=== PATIENT | female | born 1950 | race Caucasian/White ===

== ENCOUNTER → 2020-11-02 14:18 | Outpatient (CLI) | payer MEDICARE, SELFPAY ==
[2020-11-02 14:33] LABS: Basophils # 0.1 K/mm3 (0-0.2); Basophils % 1.2 % (0.1-2.0); Eosinophils % 0.1 % (0.1-12.0); Hematocrit 39.8 % (37.0-47.0); Hemoglobin 13.1 g/dL (12.2-16.2); Lymphocytes # 1.2 K/mm3 (0.7-4.5); Lymphocytes % 19.5 % (10-50); Mean Corpuscular HGB Conc 32.9 g/dL (31.8-35.4); Mean Corpuscular Hemoglobin 28.9 pg (27.0-31.2); Mean Corpuscular Volume 87.8 fl (81-99); Mean Platelet Volume 8.7 fl (7.4-10.4); Monocytes # 0.3 K/mm3 (0.1-1.0); Monocytes % 5.6 % (1.7-9.3); Neutrophils # 4.5 K/mm3 (1.8-7.8); Neutrophils % 73.6 % (37.0-80.0); Platelet Count 377 K/mm3 (142-424); Red Blood Count 4.53 M/mm3 (4.20-5.40); Red Cell Distribution Width 13.7 % (11.5-17.5); White Blood Count 6.1 K/mm3 (4.8-10.8)
[2020-11-02 14:52] LABS: Chloride 106 mmol/L (98-107); Sodium 142 mmol/L (136-145)
[2020-11-02 14:53] LABS: Potassium 4.4 mmoL/L (3.5-5.1)
[2020-11-02 14:55] LABS: Alanine Aminotransferase 11 U/L (12-78); Albumin Level 4.1 g/dl (3.5-5.0); Alkaline Phosphatase 90 U/L (38-126); Anion Gap 13.4 mEq/L (5-15); Aspartate Amino Transferase 21 U/L (14-36); Bilirubin,Total 0.6 mg/dl (0.2-1.3); Blood Urea Nitrogen 6 mg/dl (7-17); Carbon Dioxide 27 mmol/L (22.0-30.0); Cholesterol 181 mg/dl (140-200); Estimated Glomerular Filt Rate 122 ml/min (>60); GFR (African American) 148 ML/MIN (>60); Globulin 2.1 g/dL (1.3-3.2); Total Protein,Serum 6.2 g/dl (6.3-8.2); Triglycerides 123 mg/dl (30-150); VLDL Cholesterol 25 mg/dL (0-40)
[2020-11-02 14:56] LABS: Calcium 9.4 mg/dl (8.4-10.2); Chol/HDL Ratio 3.2 (1-3.5); Glucose 91 mg/dl (74-100); HDL Cholesterol 57 mg/dl (40-60)
[2020-11-02 15:01] LABS: Erythrocyte Sedimentation Rate 16 mm/hr (0-30)
[2020-11-02 15:10] LABS: Direct LDL Cholesterol 104.11 mg/dL (100-129)
[2020-11-02 17:20] LABS: Free T4 (Free Thyroxine) 1.69 ng/dl (0.78-2.19)
[2020-11-02 18:59] LABS: Thyroid Stimulating Hormone 0.02 uIU/mL (0.465-4.68)
[2020-11-04 13:31] LABS: Antinuclear Antibodies, IFA Negative (.)
== END ==
PROVIDERS: Visit Provider Internal Medicine
DX: E03.9 Hypothyroidism, unspecified (principal); I87.2 Venous insufficiency (chronic) (peripheral); F41.9 Anxiety disorder, unspecified; K21.9 Gastro-esophageal reflux disease without esophagitis; E78.5 Hyperlipidemia, unspecified; L50.9 Urticaria, unspecified; N39.0 Urinary tract infection, site not specified
CPT/HCPCS: 80053; 80061; 84439; 84443; 85025; 85651; 86038; 87086; 87088; 87186

== ENCOUNTER → 2021-02-02 14:00 | Outpatient (CLI) | payer MEDICARE, SELFPAY ==
[2021-02-02 14:14] LABS: Basophils # 0.1 K/mm3 (0-0.2); Basophils % 1.4 % (0.1-2.0); Hematocrit 48.3 % (37.0-47.0); Hemoglobin 15.2 g/dL (12.2-16.2); Lymphocytes # 1.2 K/mm3 (0.7-4.5); Lymphocytes % 18.1 % (10-50); Mean Corpuscular HGB Conc 31.4 g/dL (31.8-35.4); Mean Corpuscular Hemoglobin 28.7 pg (27.0-31.2); Mean Corpuscular Volume 91.3 fl (81-99); Mean Platelet Volume 9.2 fl (7.4-10.4); Monocytes # 0.3 K/mm3 (0.1-1.0); Monocytes % 4.5 % (1.7-9.3); Neutrophils % 75.9 % (37.0-80.0); Platelet Count 470 K/mm3 (142-424); Red Cell Distribution Width 13.1 % (11.5-17.5); White Blood Count 6.6 K/mm3 (4.8-10.8)
[2021-02-02 15:15] LABS: Chloride 102 mmol/L (98-107)
[2021-02-02 15:16] LABS: Potassium 4.6 mmoL/L (3.5-5.1); Sodium 141 mmol/L (136-145)
[2021-02-02 15:18] LABS: Alanine Aminotransferase 9 U/L (12-78); Amylase 56 U/L (30-110); Aspartate Amino Transferase 23 U/L (14-36); Blood Urea Nitrogen 13 mg/dl (7-17); Carbon Dioxide 30 mmol/L (22.0-30.0); Estimated Glomerular Filt Rate 99 ml/min (>60); GFR (African American) 120 ML/MIN (>60)
[2021-02-02 15:19] LABS: Albumin Level 4.5 g/dl (3.5-5.0); Albumin/Globulin Ratio 1.8 (1.1-1.8); Alkaline Phosphatase 97 U/L (38-126); Anion Gap 13.6 mEq/L (5-15); Bilirubin,Total 0.6 mg/dl (0.2-1.3); Calcium 9.7 mg/dl (8.4-10.2); Globulin 2.5 g/dL (1.3-3.2); Glucose 88 mg/dl (74-100)
== END ==
PROVIDERS: Visit Provider Internal Medicine
DX: I87.2 Venous insufficiency (chronic) (peripheral) (principal); E78.5 Hyperlipidemia, unspecified; Z79.899 Other long term (current) drug therapy
CPT/HCPCS: 80053; 82150; 85025

== ENCOUNTER → 2021-05-03 13:39 | Outpatient (CLI) | payer MEDICARE, SELFPAY ==
[2021-05-03 14:14] LABS: Basophils # 0.1 K/mm3 (0-0.2); Basophils % 1.6 % (0.1-2.0); Hematocrit 44.4 % (37.0-47.0); Hemoglobin 14.1 g/dL (12.2-16.2); Lymphocytes # 1.1 K/mm3 (0.7-4.5); Lymphocytes % 22.3 % (10-50); Mean Corpuscular HGB Conc 31.8 g/dL (31.8-35.4); Mean Corpuscular Hemoglobin 28.7 pg (27.0-31.2); Mean Corpuscular Volume 90.2 fl (81-99); Mean Platelet Volume 8.4 fl (7.4-10.4); Monocytes # 0.3 K/mm3 (0.1-1.0); Monocytes % 5.7 % (1.7-9.3); Neutrophils # 3.4 K/mm3 (1.8-7.8); Neutrophils % 70.5 % (37.0-80.0); Platelet Count 456 K/mm3 (142-424); Red Blood Count 4.92 M/mm3 (4.20-5.40); Red Cell Distribution Width 13.4 % (11.5-17.5); White Blood Count 4.9 K/mm3 (4.8-10.8)
[2021-05-03 14:44] LABS: Alanine Aminotransferase 13 U/L (12-78); Albumin Level 4.6 g/dl (3.5-5.0); Albumin/Globulin Ratio 2.4 (1.1-1.8); Alkaline Phosphatase 78 U/L (38-126); Anion Gap 11.7 mEq/L (5-15); Aspartate Amino Transferase 27 U/L (14-36); Bilirubin,Total 0.7 mg/dl (0.2-1.3); Blood Urea Nitrogen 10 mg/dl (7-17); Calcium 9.7 mg/dl (8.4-10.2); Carbon Dioxide 33 mmol/L (22.0-30.0); Chloride 98 mmol/L (98-107); Chol/HDL Ratio 3.2 (1-3.5); Cholesterol 221 mg/dl (140-200); Estimated Glomerular Filt Rate 99 ml/min (>60); GFR (African American) 120 ML/MIN (>60); Globulin 1.9 g/dL (1.3-3.2); Glucose 83 mg/dl (74-100); HDL Cholesterol 70 mg/dl (40-60); Potassium 4.7 mmoL/L (3.5-5.1); Sodium 138 mmol/L (136-145); Total Protein,Serum 6.5 g/dl (6.3-8.2); Triglycerides 102 mg/dl (30-150); VLDL Cholesterol 20 mg/dL (0-40)
[2021-05-03 14:55] LABS: Direct LDL Cholesterol 134.96 mg/dL (100-129)
[2021-05-03 15:15] LABS: Thyroid Stimulating Hormone 0.13 uIU/mL (0.465-4.68)
== END ==
LOC: LAB 13:40 → LAB.DROPOF 13:40
PROVIDERS: Visit Provider Internal Medicine
DX: E03.9 Hypothyroidism, unspecified (principal); I87.2 Venous insufficiency (chronic) (peripheral); E78.5 Hyperlipidemia, unspecified; L50.9 Urticaria, unspecified
CPT/HCPCS: 80053; 80061; 84443; 85025

== ENCOUNTER → 2021-10-19 12:31 | Outpatient (CLI) | payer MEDICARE, SELFPAY ==
[2021-10-19 14:57] LABS: Chloride 102 mmol/L (98-107); Potassium 4.8 mmoL/L (3.5-5.1); Sodium 138 mmol/L (136-145)
[2021-10-19 15:00] LABS: Alanine Aminotransferase 11 U/L (12-78); Albumin Level 4.4 g/dl (3.5-5.0); Albumin/Globulin Ratio 1.9 (1.1-1.8); Alkaline Phosphatase 84 U/L (38-126); Anion Gap 10.8 mEq/L (5-15); Aspartate Amino Transferase 27 U/L (14-36); Blood Urea Nitrogen 8 mg/dl (7-17); Calcium 9.8 mg/dl (8.4-10.2); Carbon Dioxide 30 mmol/L (22.0-30.0); Estimated Glomerular Filt Rate 82 ml/min (>60); GFR (African American) 100 ML/MIN (>60); Globulin 2.3 g/dL (1.3-3.2); Glucose 88 mg/dl (74-100); Total Protein,Serum 6.7 g/dl (6.3-8.2)
[2021-10-19 15:31] LABS: Thyroid Stimulating Hormone 0.61 uIU/mL (0.465-4.68)
== END ==
PROVIDERS: PCP Internal Medicine; Visit Provider Internal Medicine
DX: E03.9 Hypothyroidism, unspecified (principal); I87.2 Venous insufficiency (chronic) (peripheral); R53.83 Other fatigue
CPT/HCPCS: 80053; 84443

== ENCOUNTER → 2022-01-18 13:47 | Outpatient (CLI) | payer MEDICARE, SELFPAY ==
[2022-01-18 17:23] LABS: Basophils # 0.1 K/mm3 (0-0.2); Basophils % 2.7 % (0.1-2.0); Eosinophils % 0.1 % (0.1-12.0); Hematocrit 44.9 % (37.0-47.0); Hemoglobin 13.9 g/dL (12.2-16.2); Lymphocytes # 1.1 K/mm3 (0.7-4.5); Lymphocytes % 21.5 % (10-50); Mean Corpuscular Hemoglobin 28.7 pg (27.0-31.2); Mean Corpuscular Volume 92.5 fl (81-99); Mean Platelet Volume 9.2 fl (7.4-10.4); Monocytes # 0.3 K/mm3 (0.1-1.0); Monocytes % 6.5 % (1.7-9.3); Neutrophils # 3.4 K/mm3 (1.8-7.8); Neutrophils % 69.2 % (37.0-80.0); Platelet Count 471 K/mm3 (142-424); Red Blood Count 4.86 M/mm3 (4.20-5.40); Red Cell Distribution Width 13.4 % (11.5-17.5)
[2022-01-18 17:38] LABS: Alanine Aminotransferase 13 U/L (12-78); Albumin Level 4.4 g/dl (3.5-5.0); Albumin/Globulin Ratio 2.1 (1.1-1.8); Alkaline Phosphatase 99 U/L (38-126); Anion Gap 16.6 mEq/L (5-15); Aspartate Amino Transferase 27 U/L (14-36); Bilirubin,Total 0.8 mg/dl (0.2-1.3); Blood Urea Nitrogen 9 mg/dl (7-17); Calcium 9.3 mg/dl (8.4-10.2); Carbon Dioxide 31 mmol/L (22.0-30.0); Chloride 98 mmol/L (98-107); Estimated Glomerular Filt Rate 99 ml/min (>60); GFR (African American) 119 ML/MIN (>60); Globulin 2.1 g/dL (1.3-3.2); Glucose 70 mg/dl (74-100); Potassium 4.6 mmoL/L (3.5-5.1); Sodium 141 mmol/L (136-145); Total Protein,Serum 6.5 g/dl (6.3-8.2)
[2022-01-18 18:05] LABS: Thyroid Stimulating Hormone 1.05 uIU/mL (0.465-4.68)
== END ==
PROVIDERS: PCP Internal Medicine; Visit Provider Internal Medicine
DX: I10 Essential (primary) hypertension (principal); E03.9 Hypothyroidism, unspecified; E78.5 Hyperlipidemia, unspecified; F41.9 Anxiety disorder, unspecified; I87.2 Venous insufficiency (chronic) (peripheral)
CPT/HCPCS: 80053; 84443; 85025

== ENCOUNTER → 2022-04-17 12:17 | Outpatient (CLI) | payer MEDICARE, SELFPAY ==
[2022-04-17 12:32] LABS: Basophils # 0.1 K/mm3 (0-0.2); Basophils % 1.8 % (0.1-2.0); Eosinophils % 0.1 % (0.1-12.0); Hematocrit 45.3 % (37.0-47.0); Hemoglobin 14.3 g/dL (12.2-16.2); Lymphocytes % 22.6 % (10-50); Mean Corpuscular HGB Conc 31.6 g/dL (31.8-35.4); Mean Corpuscular Hemoglobin 27.8 pg (27.0-31.2); Mean Corpuscular Volume 87.9 fl (81-99); Mean Platelet Volume 8.5 fl (7.4-10.4); Monocytes # 0.3 K/mm3 (0.1-1.0); Monocytes % 5.9 % (1.7-9.3); Neutrophils # 3.1 K/mm3 (1.8-7.8); Neutrophils % 69.6 % (37.0-80.0); Platelet Count 472 K/mm3 (142-424); Red Blood Count 5.16 M/mm3 (4.20-5.40); White Blood Count 4.5 K/mm3 (4.8-10.8)
[2022-04-17 13:22] LABS: Erythrocyte Sedimentation Rate 1 mm/hr (0-30)
[2022-04-17 13:45] LABS: Alanine Aminotransferase 9 U/L (12-78); Albumin Level 4.7 g/dl (3.5-5.0); Alkaline Phosphatase 108 U/L (38-126); Anion Gap 12.6 mEq/L (5-15); Aspartate Amino Transferase 24 U/L (14-36); Blood Urea Nitrogen 7 mg/dl (7-17); Calcium 10.3 mg/dl (8.4-10.2); Carbon Dioxide 31 mmol/L (22.0-30.0); Chloride 101 mmol/L (98-107); Estimated Glomerular Filt Rate 71 ml/min (>60); GFR (African American) 86 ML/MIN (>60); Globulin 2.3 g/dL (1.3-3.2); Glucose 90 mg/dl (74-100); Potassium 4.6 mmoL/L (3.5-5.1); Sodium 140 mmol/L (136-145)
== END ==
PROVIDERS: PCP Internal Medicine; Visit Provider Internal Medicine
DX: R07.89 Other chest pain (principal); E78.5 Hyperlipidemia, unspecified; F41.9 Anxiety disorder, unspecified; G44.1 Vascular headache, not elsewhere classified
CPT/HCPCS: 80053; 85025; 85651

== ENCOUNTER → 2022-07-17 11:49 | Outpatient (CLI) | payer MEDICARE, SELFPAY ==
[2022-07-17 12:52] LABS: Basophils # 0.1 K/mm3 (0-0.2); Basophils % 1.2 % (0.1-2.0); Eosinophils % 0.1 % (0.1-12.0); Hematocrit 44.1 % (37.0-47.0); Hemoglobin 14.3 g/dL (12.2-16.2); Lymphocytes # 0.9 K/mm3 (0.7-4.5); Mean Corpuscular HGB Conc 32.3 g/dL (31.8-35.4); Mean Corpuscular Hemoglobin 28.8 pg (27.0-31.2); Mean Platelet Volume 8.5 fl (7.4-10.4); Monocytes # 0.3 K/mm3 (0.1-1.0); Monocytes % 5.6 % (1.7-9.3); Neutrophils # 4.6 K/mm3 (1.8-7.8); Platelet Count 466 K/mm3 (142-424); Red Blood Count 4.96 M/mm3 (4.20-5.40); Red Cell Distribution Width 13.1 % (11.5-17.5); White Blood Count 5.9 K/mm3 (4.8-10.8)
[2022-07-17 13:18] LABS: Erythrocyte Sedimentation Rate 1 mm/hr (0-30)
[2022-07-17 13:23] LABS: Alanine Aminotransferase 11 U/L (12-78); Albumin Level 4.5 g/dl (3.5-5.0); Alkaline Phosphatase 86 U/L (38-126); Anion Gap 13.4 mEq/L (5-15); Aspartate Amino Transferase 24 U/L (14-36); Bilirubin,Total 0.9 mg/dl (0.2-1.3); Blood Urea Nitrogen 9 mg/dl (7-17); Calcium 9.3 mg/dl (8.4-10.2); Carbon Dioxide 29 mmol/L (22.0-30.0); Chloride 100 mmol/L (98-107); Estimated Glomerular Filt Rate 82 ml/min (>60); GFR (African American) 100 ML/MIN (>60); Globulin 2.2 g/dL (1.3-3.2); Glucose 89 mg/dl (74-100); Potassium 4.4 mmoL/L (3.5-5.1); Sodium 138 mmol/L (136-145); Total Protein,Serum 6.7 g/dl (6.3-8.2)
[2022-07-17 13:56] LABS: Thyroid Stimulating Hormone 3.52 uIU/mL (0.465-4.68)
== END ==
PROVIDERS: PCP Internal Medicine; Visit Provider Internal Medicine
DX: R10.12 Left upper quadrant pain (principal); E03.9 Hypothyroidism, unspecified; I87.2 Venous insufficiency (chronic) (peripheral); F41.9 Anxiety disorder, unspecified; A09 Infectious gastroenteritis and colitis, unspecified
CPT/HCPCS: 80053; 84443; 85025; 85651

== ENCOUNTER → 2022-10-16 14:26 | Outpatient (CLI) | payer MEDICARE, SELFPAY ==
[2022-10-16 16:18] LABS: Basophils % 0.7 % (0.1-2.0); Eosinophils % 0.2 % (0.1-12.0); Hematocrit 42.3 % (37.0-47.0); Hemoglobin 13.7 g/dL (12.2-16.2); Lymphocytes # 1.1 K/mm3 (0.7-4.5); Lymphocytes % 26.2 % (10-50); Mean Corpuscular HGB Conc 32.5 g/dL (31.8-35.4); Mean Corpuscular Hemoglobin 28.1 pg (27.0-31.2); Mean Corpuscular Volume 86.6 fl (81-99); Mean Platelet Volume 8.1 fl (7.4-10.4); Monocytes # 0.3 K/mm3 (0.1-1.0); Monocytes % 6.6 % (1.7-9.3); Neutrophils # 2.8 K/mm3 (1.8-7.8); Neutrophils % 66.3 % (37.0-80.0); Platelet Count 443 K/mm3 (142-424); Red Blood Count 4.89 M/mm3 (4.20-5.40); Red Cell Distribution Width 13.1 % (11.5-17.5); White Blood Count 4.2 K/mm3 (4.8-10.8)
[2022-10-16 16:45] LABS: Alanine Aminotransferase 14 U/L (12-78); Albumin Level 4.4 g/dl (3.5-5.0); Albumin/Globulin Ratio 2.2 (1.1-1.8); Alkaline Phosphatase 84 U/L (38-126); Amylase 64 U/L (30-110); Aspartate Amino Transferase 30 U/L (14-36); Bilirubin,Total 0.7 mg/dl (0.2-1.3); Blood Urea Nitrogen 11 mg/dl (7-17); Calcium 9.3 mg/dl (8.4-10.2); Carbon Dioxide 31 mmol/L (22.0-30.0); Chloride 100 mmol/L (98-107); Estimated Glomerular Filt Rate 98 ml/min (>60); GFR (African American) 119 ML/MIN (>60); Glucose 73 mg/dl (74-100); Sodium 138 mmol/L (136-145); Total Protein,Serum 6.4 g/dl (6.3-8.2)
[2022-10-16 17:15] LABS: Thyroid Stimulating Hormone 1.27 uIU/mL (0.465-4.68)
== END ==
PROVIDERS: PCP Internal Medicine; Visit Provider Internal Medicine
DX: R10.12 Left upper quadrant pain (principal); F41.9 Anxiety disorder, unspecified; E03.9 Hypothyroidism, unspecified; I87.2 Venous insufficiency (chronic) (peripheral); K21.9 Gastro-esophageal reflux disease without esophagitis
CPT/HCPCS: 80053; 82150; 84443; 85025

== ENCOUNTER → 2023-01-22 18:46 | Outpatient (CLI) | payer MEDICARE, SELFPAY ==
[2023-01-22 19:25] LABS: Basophils # 0.1 K/mm3 (0-0.2); Basophils % 1.1 % (0.1-2.0); Eosinophils % 0.1 % (0.1-12.0); Hematocrit 47.9 % (37.0-47.0); Hemoglobin 14.8 g/dL (12.2-16.2); Lymphocytes % 18.8 % (10-50); Mean Corpuscular HGB Conc 30.9 g/dL (31.8-35.4); Mean Corpuscular Hemoglobin 27.4 pg (27.0-31.2); Mean Corpuscular Volume 88.6 fl (81-99); Mean Platelet Volume 8.6 fl (7.4-10.4); Monocytes # 0.3 K/mm3 (0.1-1.0); Monocytes % 4.7 % (1.7-9.3); Neutrophils % 75.3 % (37.0-80.0); Platelet Count 503 K/mm3 (142-424); Red Cell Distribution Width 13.4 % (11.5-17.5); White Blood Count 5.3 K/mm3 (4.8-10.8)
[2023-01-22 19:38] LABS: Alanine Aminotransferase 13 U/L (12-78); Albumin Level 4.5 g/dl (3.5-5.0); Albumin/Globulin Ratio 1.8 (1.1-1.8); Alkaline Phosphatase 88 U/L (38-126); Anion Gap 14.6 mEq/L (5-15); Aspartate Amino Transferase 24 U/L (14-36); Bilirubin,Total 0.7 mg/dl (0.2-1.3); Blood Urea Nitrogen 8 mg/dl (7-17); Calcium 9.5 mg/dl (8.4-10.2); Carbon Dioxide 28 mmol/L (22.0-30.0); Chloride 100 mmol/L (98-107); Chol/HDL Ratio 2.5 (1-3.5); Cholesterol 218 mg/dl (140-200); Estimated Glomerular Filt Rate 82 ml/min (>60); GFR (African American) 100 ML/MIN (>60); Globulin 2.5 g/dL (1.3-3.2); Glucose 70 mg/dl (74-100); HDL Cholesterol 88 mg/dl (40-60); Potassium 4.6 mmoL/L (3.5-5.1); Sodium 138 mmol/L (136-145); Triglycerides 105 mg/dl (30-150); VLDL Cholesterol 21 mg/dL (0-40)
[2023-01-22 19:49] LABS: Direct LDL Cholesterol 104.68 mg/dL (100-129)
== END ==
PROVIDERS: PCP Internal Medicine; Visit Provider Internal Medicine
DX: I87.2 Venous insufficiency (chronic) (peripheral) (principal); E78.5 Hyperlipidemia, unspecified; I73.9 Peripheral vascular disease, unspecified; M17.10 Unilateral primary osteoarthritis, unspecified knee
CPT/HCPCS: 80053; 80061; 85025

== ENCOUNTER 2023-05-04 13:21 | Outpatient (CLI) | payer MEDICARE, SELFPAY ==
[2023-05-04 14:18] LABS: Basophils % 0.7 % (0.1-2.0); Eosinophils % 0.1 % (0.1-12.0); Hematocrit 43.7 % (37.0-47.0); Hemoglobin 14.6 g/dL (12.2-16.2); Lymphocytes % 22.5 % (10-50); Mean Corpuscular HGB Conc 33.3 g/dL (31.8-35.4); Mean Corpuscular Hemoglobin 29.6 pg (27.0-31.2); Mean Corpuscular Volume 88.7 fl (81-99); Mean Platelet Volume 8.9 fl (7.4-10.4); Monocytes # 0.3 K/mm3 (0.1-1.0); Monocytes % 5.9 % (1.7-9.3); Neutrophils # 3.2 K/mm3 (1.8-7.8); Neutrophils % 70.8 % (37.0-80.0); Platelet Count 447 K/mm3 (142-424); Red Blood Count 4.93 M/mm3 (4.20-5.40); Red Cell Distribution Width 13.6 % (11.5-17.5); White Blood Count 4.5 K/mm3 (4.8-10.8)
[2023-05-04 14:40] LABS: Amylase 48 U/L (30-110)
[2023-05-04 15:11] LABS: Thyroid Stimulating Hormone 0.95 uIU/mL (0.465-4.68)
== END 2023-05-04 23:59 ==
LOC: LAB.DROPOF 13:23
PROVIDERS: PCP Internal Medicine; Visit Provider Internal Medicine
DX: R10.32 Left lower quadrant pain; E03.9 Hypothyroidism, unspecified; I87.2 Venous insufficiency (chronic) (peripheral); E78.5 Hyperlipidemia, unspecified; F41.9 Anxiety disorder, unspecified; K21.9 Gastro-esophageal reflux disease without esophagitis; M17.10 Unilateral primary osteoarthritis, unspecified knee
CPT/HCPCS: 82150; 84443; 85025

== ENCOUNTER 2023-08-06 15:18 | Outpatient (CLI) | payer MEDICARE, SELFPAY ==
[2023-08-06 16:29] LABS: Alanine Aminotransferase 16 U/L (12-78); Albumin Level 4.6 g/dl (3.5-5.0); Albumin/Globulin Ratio 2.1 (1.1-1.8); Alkaline Phosphatase 99 U/L (38-126); Anion Gap 13.9 mEq/L (5-15); Aspartate Amino Transferase 31 U/L (14-36); Bilirubin,Total 0.6 mg/dl (0.2-1.3); Blood Urea Nitrogen 12 mg/dl (7-17); Calcium 9.9 mg/dl (8.4-10.2); Carbon Dioxide 31 mmol/L (22.0-30.0); Chloride 101 mmol/L (98-107); Chol/HDL Ratio 3.2 (1-3.5); Cholesterol 233 mg/dl (140-200); Estimated Glomerular Filt Rate 82 ml/min (>60); GFR (African American) 99 ML/MIN (>60); Globulin 2.2 g/dL (1.3-3.2); Glucose 76 mg/dl (74-100); HDL Cholesterol 72 mg/dl (40-60); Magnesium 2.2 mg/dl (1.6-2.3); Potassium 4.9 mmoL/L (3.5-5.1); Sodium 141 mmol/L (136-145); Total Protein,Serum 6.8 g/dl (6.3-8.2); Triglycerides 84 mg/dl (30-150); VLDL Cholesterol 17 mg/dL (0-40)
[2023-08-06 16:47] LABS: 25-OH Vitamin D, Total 35.6 ng/mL (30-100)
[2023-08-06 17:02] LABS: Thyroid Stimulating Hormone 4.09 uIU/mL (0.465-4.68)
[2023-08-06 17:21] LABS: Vitamin B12 212 pg/mL (239-931)
== END 2023-08-06 23:59 | disposition home or self-care (01) ==
LOC: LAB.DROPOF 15:19
PROVIDERS: PCP Internal Medicine; Visit Provider Internal Medicine
DX: R07.89 Other chest pain (principal); E03.9 Hypothyroidism, unspecified; E53.8 Deficiency of other specified B group vitamins; E78.5 Hyperlipidemia, unspecified; K21.9 Gastro-esophageal reflux disease without esophagitis; I87.2 Venous insufficiency (chronic) (peripheral); I73.9 Peripheral vascular disease, unspecified; M15.0 Primary generalized (osteo)arthritis; M47.817 Spondylosis without myelopathy or radiculopathy, lumbosacral region
CPT/HCPCS: 80053; 80061; 82306; 82607; 83735; 84443

== ENCOUNTER 2024-02-04 14:19 | Outpatient (CLI) | payer MEDICARE, SELFPAY ==
[2024-02-04 13:29] LABS: Basophils # 0.1 K/mm3 (0-0.2); Basophils % 1.8 % (0.1-2.0); Eosinophils % 0.2 % (0.1-12.0); Hematocrit 42.3 % (37.0-47.0); Hemoglobin 14.4 g/dL (12.2-16.2); Lymphocytes % 20.7 % (10-50); Mean Corpuscular Hemoglobin 29.4 pg (27.0-31.2); Mean Corpuscular Volume 86.4 fl (81-99); Mean Platelet Volume 8.1 fl (7.4-10.4); Monocytes # 0.3 K/mm3 (0.1-1.0); Monocytes % 6.4 % (1.7-9.3); Neutrophils # 3.3 K/mm3 (1.8-7.8); Neutrophils % 70.9 % (37.0-80.0); Platelet Count 430 K/mm3 (142-424); Red Cell Distribution Width 13.8 % (11.5-17.5); White Blood Count 4.7 K/mm3 (4.8-10.8)
[2024-02-04 14:23] LABS: Alanine Aminotransferase 13 U/L (12-78); Albumin Level 4.5 g/dl (3.5-5.0); Alkaline Phosphatase 77 U/L (38-126); Aspartate Amino Transferase 33 U/L (14-36); Bilirubin,Total 0.9 mg/dl (0.2-1.3); Blood Urea Nitrogen 9 mg/dl (7-17); Calcium 9.5 mg/dl (8.4-10.2); Carbon Dioxide 23 mmol/L (22.0-30.0); Chloride 104 mmol/L (98-107); Chol/HDL Ratio 2.7 (1-3.5); Cholesterol 231 mg/dl (140-200); Estimated Glomerular Filt Rate 98 ml/min (>60); GFR (African American) 119 ML/MIN (>60); Globulin 2.2 g/dL (1.3-3.2); Glucose 71 mg/dl (74-100); HDL Cholesterol 87 mg/dl (40-60); Sodium 134 mmol/L (136-145); Total Protein,Serum 6.7 g/dl (6.3-8.2); Triglycerides 77 mg/dl (30-150); VLDL Cholesterol 15 mg/dL (0-40)
[2024-02-04 14:33] LABS: Direct LDL Cholesterol 116.85 mg/dL (100-129)
[2024-02-04 14:57] LABS: Anion Gap 11.8 mEq/L (5-15); Potassium 4.8 mmoL/L (3.5-5.1)
[2024-02-04 15:32] LABS: Thyroid Stimulating Hormone 7.56 uIU/mL (0.465-4.68)
== END 2024-02-04 23:59 | disposition home or self-care (01) ==
LOC: LAB.DROPOF 14:20
PROVIDERS: PCP Internal Medicine; Visit Provider Internal Medicine
DX: E78.5 Hyperlipidemia, unspecified (principal); M15.0 Primary generalized (osteo)arthritis; R53.83 Other fatigue; E03.9 Hypothyroidism, unspecified
CPT/HCPCS: 80053; 80061; 84443; 85025

== ENCOUNTER 2024-06-02 14:04 | Outpatient (CLI) | payer MEDICARE, SELFPAY ==
[2024-06-02 14:16] LABS: Anion Gap 18.1 mEq/L (5-15); Blood Urea Nitrogen 12 mg/dl (7-17); Calcium 9.9 mg/dl (8.4-10.2); Carbon Dioxide 27 mmol/L (22.0-30.0); Chloride 100 mmol/L (98-107); Estimated Glomerular Filt Rate 82 ml/min (>60); GFR (African American) 99 ML/MIN (>60); Glucose 77 mg/dl (74-100); Potassium 5.1 mmoL/L (3.5-5.1); Sodium 140 mmol/L (136-145)
[2024-06-02 14:47] LABS: Thyroid Stimulating Hormone 0.88 uIU/mL (0.465-4.68)
== END 2024-06-02 23:59 | disposition home or self-care (01) ==
LOC: LAB.DROPOF 14:04
PROVIDERS: PCP Internal Medicine; Visit Provider Internal Medicine
DX: E03.9 Hypothyroidism, unspecified (principal); E87.1 Hypo-osmolality and hyponatremia
CPT/HCPCS: 80048; 84443

== ENCOUNTER 2025-01-01 09:35 | Outpatient (CLI) | payer MEDICARE, SELFPAY ==
--- OUTSIDE RECORDS SUMMARY | 2023-12-10 03:00 | XMS_ITS ---
Author Organization [facility] Dupont MD Address [address] [place] [address] Care Team Providers Care Smeller Name Role Phone Matt Dupont Unavailable [phone] Shailesh STRAUSS MD, [place] Unavailable Unavailable Medications Medication SIG (Take, Route, Frequency, Duration) Notes Start Date End Date Status Albuterol Sulfate HFA 108 (9 0 Base) MCG/ACT INHALE 2 PUFFS BY MOUTH EVERY 4 HOURS NEEDED Inhalation; Duration: 16 Days Active Pred-G 0.3-1 % 4 gtts lt ear otic three times a day; Duration: 10 days 08/03/2022 Active Lactulose 10 GM/15ML TAKE 10 TO 15 ML BY MOUTH TWICE DAILY FOR 15 DAYS Oral; Duration: 15 Days Active Promethazine HCl 25 MG Oral; Duration: 6 Days Active Ventolin HFA 108 (90 Base) MCG/ACT 2 puffs as needed Inhalation every 4 hrs prn; Duration: 30 days 10/15/2023 Active Levothyroxine Sodium 25 MCG 1 tablet in the morning on an empty stomach Orally Once a day Active Omeprazole 10 MG 1 capsule 30 minutes before morning meal Orally Once a day Active diazePAM 2.5 MG as directed Rectal Active methylPREDNISolone 16 MG 1 tablet in the morning with food or milk Orally Once a day Active Flonase 50 MCG/ACT 2 spray in each nostril Nasally Once a day; Duration: 30 day(s) 07/18/2021 Active Ciprodex 0.3-0.1 % 4 drops into affecte d ear Otic Twice a day; Duration: 10 days 09/28/2023 Active dilTIAZem HCl 25 MG/5ML as directed Intravenous Active Encounters Encounter Location Date Provider Diagnosis [facility] [address] [place] [address] 12/10/2023 Matt Pradhan Other chronic nonsuppurative otitis media of both ears H65.493 ; Dysfunction of both eustachian tubes H69.93 ; Other specified hearing loss of both ears H91.8X3 ; Tinnitus of both ears H93.13 ; Other acute recurrent sinusitis J01.81 ; Nasal obstruction J34.89 ; Hypertrophy of inferior nasal turbinate J34.3 ; Seasonal allergic rhinitis due to other allergic trigger J30.89 ; Pulsatile tinnitus H93.A9 and COVID U07.1 Assessments Encounter Date Diagnosis (ICD Code) Assessment Notes Treatment Notes Treatment Clinical Notes Section Notes 12/10/2023 Other chronic nonsuppurative otitis media of both ears (ICD-10 - H65.493) 12/10/2023 Dysfunction of both eustachian tubes (ICD-10 - H69.93) 12/10/2023 Other specified hearing loss of both ears (ICD-10 - H91.8X3) 12/10/2023 Tinnitus of both ears (ICD-10 - H93.13) 12/10/2023 Other acute recurrent sinusitis (ICD-10 - J01.81) 12/10/2023 Nasal obstruction (ICD-10 - J34.89) 12/10/2023 Hypertrophy of inferior nasal turbinate (ICD-10 - J34.3) 12/10/2023 Seasonal allergic rhinitis due to other allergic trigger (ICD-10 - J30.89) 12/10/2023 Pulsatile tinnitus (ICD-10 - H93.A9) 12/10/2023 COVID (ICD-10 - U07.1) Plan Of Treatment No Information Procedure Notes * Category Sub-Category Detail Notes OUTPATIENT SURGERY PE Tube Placement PE Tubes--t -tubes were inserted today as an outpatient under general anesthesia. The procedure was tolerated well. The family was instructed on protecting the ears from water. Follow up in 2-3 weeks with a post op audiogram Progress Notes * Karolina MONTENEGRO BDOB:1950 (74 yo F)Acc No.[id number]:12/10/2023 Progress Note Patient: Karolina SOOD Provider: Chino Dupont MD :1950 A ge:73 Y S ex:Female Date:12/10/2023 Address:[address] [place] [address] , [place], [id number] Subjective: * Chief Complaints: * * Active Problem List H65.493 Other chronic nonsup purative otitis media of both ears Modified On:01/15/2023 Status:confirmed H91.8X3 Other specified hear ing loss of both ears Modified On:01/15/2023 Status:confirmed H93.13 Tinnitus of both ear s Modified On:01/15/2023 Status:confirmed J01.81 Other acute recurren t sinusitis Modified On:01/15/2023 Status:confirmed J34.89 Nasal obstruction Modified On:01/15/2023 Status:confirmed J34.3 Hypertrophy of infer ior nasal turbinate Modified On:01/15/2023 Status:confirmed J30.89 Seasonal allergic rh initis due to other allergic trigger Modified On:01/15/2023 Status:confirmed H69.82 Dysfunction of left eustachian tube Modified On:01/15/2023 Status:confirmed H60.391 Other infective acut e otitis externa of right ear Modified On:01/15/2023 Status:confirmed H92.12 Otorrhea of left ear Modified On:01/15/2023 Status:confirmed H92.13 Otorrhea of both ear s Modified On:01/15/2023 Status:confirmed H93.A9 Pulsatile tinnitus Modified On:01/15/2023 Status:confirmed I65.23 Bilateral carotid ar johnnie stenosis Modified On:01/15/2023 Status:confirmed U07.1 COVID Modified On:09/17/2023 Status:confirmed J45.20 Mild intermittent as thma without complication Modified On:10/15/2023 Status:confirmed H69.93 Dysfunction of both eustachian tubes Modified On:07/15/2024W/U Status:confirmed * Medical History: * Medications: T aking Ventolin HFA 108 (90 Base) MCG/ACT Aerosol Solution 2 puffs as needed Inhalation every 4 hrs prn , Taking Pred-G 0.3-1 % Suspension 4 gtts lt ear otic three times a day , Taking Ciprodex 0.3-0.1 % Suspension 4 drops into affected ear Otic Twice a day , Taking dilTIAZem HCl 25 MG/5ML Solution as directed Intravenous , Taking Levothyroxine Sodium 25 MCG Tablet 1 tablet in the morning on an empty stomach Orally Once a day , Taking Omeprazole 10 MG Capsule Delayed Release 1 capsule 30 minutes before morning meal Orally Once a day , Taking diazePAM 2.5 MG Gel as directed Rectal , Taking methylPREDNISolone 16 MG Tablet 1 tablet in the morning with food or milk Orally Once a day , Taking Flonase 50 MCG/ACT Suspension 2 spray in each nostril Nasally Once a day , Taking Lactulose 10 GM/15ML Solution TAKE 10 TO 15 ML BY MOUTH TWICE DAILY FOR 15 DAYS Oral , Taking Promethazine HCl 25 MG Tablet Oral , Taking Albuterol Sulfate HFA 108 (90 Base) MCG/ACT Aerosol Solution INHALE 2 PUFFS BY MOUTH EVERY 4 HOURS NEEDED Inhalation Objective: * Vitals: * Physical Examination: Assessment: * Assessment: 1. O ther chronic nonsuppurative otitis media of both ears - H65.493 (Primary) 2 . D ysfunction of both eustachian tubes - H69.93 3 . O ther specified hearing loss of both ears - H91.8X3 4 . T innitus of both ears - H93.13 5. O ther acute recurrent sinusitis - J01.81 6 . N fabby obstruction - J34.89 7 . H ypertrophy of inferior nasal turbinate - J34.3 8 .?Seasonal allergic rhinitis due to other allergic trigger - J30.89 9 . P ulsatile tinnitus - H93.A9 1 0. C OVID - U07.1 Plan: * Treatment: * Procedures: O UTPATIENT SURGERY: PE Tube Placement P E Tubes--t-tubes were inserted today as an outpatient under general anesthesia. The procedure was tolerated well. The family was instructed on protecting the ears from water. Follow up in 2-3 weeks with a post op audiogram. ? * Procedure Codes: 6 9436 PE Tubes GA 2 Ear, Modifiers: 50 * * Electronic signature of Kilo Dupont MD on 01/02/2025 at 10:36 AM EDT Sign off status: Pending * Provider: Chino Dupont MD Date: 0 12/10/2023 Generated for Deya dudley/Charla/Burton on: 0 01/02/2025 10:36 AM EDT
--- OUTSIDE RECORDS SUMMARY | 2024-01-14 05:05 | XMS_ITS ---
Author Organization [facility]Matt M[facility] MD Address [address] [place] [address] Care Team Providers Care Laborer Shellfish Processing Name Role Phone Matt Mclean Unavailable [phone] Shailesh STRAUSS MD, [place] Unavailable Unavailable REASON FOR VISIT f/u tubes Encounters Encounter Location Date Provider Diagnosis [facility] [address] [place] [address] 01/14/2024 Matt Mclean Plan Of Treatment No Information Progress Notes * Karolina MONTENEGRO BDOB:1950 (74 yo F)Acc No.[id number]:01/14/2024 Patient: Karolina SOOD Provider: Chino Mclean MD :1950 A ge:73 Y S ex:Female Date:01/14/2024 Address:[facility] [address], [place], [id number] Subjective: * Chief Complaints: * 1 . F/u tubes. * Active Problem List H65.493 Other chronic nonsup purative otitis media of both ears Modified On:01/15/2023W/U Status:confirmed H91.8X3 Other specified hear ing loss of both ears Modified On:01/15/2023/U Status:confirmed H93.13 Tinnitus of both ear s Modified On:01/15/2023W/U Status:confirmed J01.81 Other acute recurren t sinusitis [...] H69.93 Dysfunction of both eustachian tubes Modified On:11/12/2023 Status:confirmed * Medical History: Objective: * Vitals: * Physical Examination: Assessment: Plan: * Treatment: * * Electronic signature of Kilo Mclean MD on 01/02/2025 at 10:37 AM EDT Sign off status: Pending * Provider: Chino Mclean MD Date: 0 01/14/2024 Generated for Deya dudley/Charla/eTjuan asmitting on: 0 01/02/2025 10:37 AM EDT
--- OUTSIDE RECORDS SUMMARY | 2024-04-07 05:00 | XMS_ITS ---
Author Organization [facility] M[facility] MD Address [address] [place] [address] Care Team Providers Care Solution Make Up Operator Name Role Phone Matt Mclean Unavailable [phone] Shailesh STRAUSS MD, [place] Unavailable Unavailable REASON FOR VISIT 6 month f/u Encounters Encounter Location Date Provider Diagnosis [facility] MD / E[facility] [address] [place] [address] 04/07/2024 Matt Mclean Plan Of Treatment No Information Progress Notes * Karolina MONTENEGRO BDOB:1950 (74 yo F)Acc No.[id number]:04/07/2024 Progress Notes Patient: Karolina SOOD Provider: Chino Mclean MD :1950 A ge:73 Y S ex:Female Date:04/07/2024 Address:[facility] [address], [place], [id number] Subjective: * Chief Complaints: * 1 . 6 month f/u. * Active Problem List H65.493 Other chronic nonsup purative otitis media of both ears Modified On:01/15/2023W/U Status:confirmed H91.8X3 Other specified hear ing loss of both ears Modified On:01/15/2023W/U Status:confirmed H93.13 Tinnitus of both ear s [...] Pending * Provider: Chino Mclean MD Date: 1 06/08/2023 Generated for Deya dudley/Charla/eTjuan asmitting on: 0 01/02/2025 10:37 AM EDT
--- OUTSIDE RECORDS SUMMARY | 2024-11-12 11:53 | XMS_ITS | Encounter Summary ---
Author Organization [facility] Address [address] [place] [address] Care Team Providers Care Serger Name Role Phone Maximo Cash MD Primary Care Provider [phone] Reason for Visit * Reason Comments Back Pain Encounter Details Date Type Department Care Team (Late st Contact Info) Description 11/12/2024 11:53 AM EDT - 11/12/2024 3:30 PM EDT Emergency [facility] EMERGENCY DEPARTMENT [place] [phone] Carlos Griffin MD [address] [place] [id number] Spinal stenosis of lumbar region, unspecified whether neurogenic claudication present (Primary Dx); Chronic midline low back pain with right-sided sciatica; Degeneration of intervertebral disc of lumbar region with discogenic back pain Discharge Disposition: Home or Self Care Social History Tobacco Use Types Packs/Day Years Used Date Smoking Tobacco: Never Passive Smoke Exposure: Never Smokeless Tobacco: Never Alcohol Use Standard Drinks/Week Comments No 0 (1 standard drink = 0.6 oz pur e alcohol) AUDIT-C Answer Date Recorded Frequency of Alcohol Consumption Never 09/16/2018 Average Number of Drinks Not on file 019 Frequency of Binge Drinking Not on file 08/29 Abuse Screen Answer Date Recorded Feels Unsafe at Home or Work/School no 11/12/2024 Feels Threatened by Someone no 10/28 Does Anyone Try to Keep You From Having Contact with Others or Doing Things Outside Your Home? no 11/12/2024 Physical Signs of Abuse Present no 11/12/2024 PHQ-2 Answer Date Recorded Retired PHQ-9: Brief Depression Severity Measure Score 0 06/05/2023 Comments No Sex and Gender Information Value Date Recorded Sex Assigned at Not on file Legal Sex Female 1:48 PM EDT Gender Identity Not on file Sexual Orientation Not on file documented as of this encounter Last Filed Vital Signs Vital Sign Reading Time Taken Comments Blood Pressure 153/84 11/12/2024 12:00 PM EDT Pulse 65 11/12/2024 1:00 PM EDT Temperature 36.7 C (98 F) 11/12/2024 11:57 AM EDT Respiratory Rate 20 11/12/2024 11:57 AM EDT Oxygen Saturation 100% 11/12/2024 1:00 PM EDT Inhaled Oxygen Concentration - - Weight 63.5 kg (140 lb) 11/12/2024 11:57 AM EDT Height 172.7 cm (5' 8 ) 11/12/2024 11:57 AM EDT Body Mass Index 21.29 11/12/2024 11:57 AM EDT documented in this encounter Functional Status * Calculated C-SSRS Risk Score (Lifetime/Recent) Answer Date of Assessment Author No Risk Indicated 11/12/2024 11:57 AM EDT Megan Hernandez RN * [place] Suicide Severity Rating Scale (Screener/Recent Self-Report) Question Answer Date of Assessment Author 1. Wish to be (Past 1 Month) No 025 11:57 AM EDT Megan Hernandez RN 2. Non-Specific Active Suici taina Thoughts (Past 1 Month) No 11/12/2024 11:57 AM EDT Megan Hernandez RN 6. Suicidal Behavior (Lifetime) No 11:57 AM EDT Megan Hernandez RN documented as of this encounter Discharge Instructions * Discharge Instructions* Ela Betancourt PA-C - 11/12/2024 3:20 PM EDT Follow-up with pain management. Return to the ER for worsening of symptoms. Take medication as prescribed. * Attachments The following attachments cannot be sent through Care Everywhere. * Chronic Back Pain (Icelandic) * Spinal Stenosis [id number] (Icelandic) * Degenerative Disk Disease (Icelandic) documented in this encounter Medications at Time of Discharge aspirin 81 MG EC tablet Take 1 tablet by mouth Daily. diazePAM (VALIUM) 5 MG tablet TAKE 1 TABLET TWICE A DAY NEEDED FOR NERVES 0 09/08/2018 Dietary Management Product (Rheumate) capsule Take 1 capsule by mouth Daily. 90 capsule 06/06/2023 diltiaZEM (CARDIZEM) 30 MG tablet Take 1 tablet by mouth 3 (Three) Times a Day. 0 08/29/2018 Gel Base gel prilocaine 2% lidocaine 10% imipramine 3% capsaicin 0.001% mannitol 20%, 1 to 2 grams of cream to the affected areas Q4-6PRN 240 g 5 06/06/2023 lactulose (CHRONULAC) 10 GM/15ML solution As Needed. 05/02/2023 levothyroxine (SYNTHROID, LEVOTHROID) 100 MCG tablet Take 1 tablet by mouth Daily. 06/04/2023 levothyroxine (SYNTHROID, LEVOTHROID) 112 MCG tablet Take 1 tablet by mouth Daily. 10/28/2024 omeprazole (priLOSEC) 40 MG capsule TAKE 1 CAPSULE BY MOUTH TWICE DAILY BEFORE MEALS 180 capsule 3 04/10/2024 ondansetron ODT (ZOFRAN-ODT) [address] 1 tablet on the tongue Every 8 (Eight) Hours As Needed for Nausea or Vomiting. 2 tablet 05/16/2022 promethazine (PHENERGAN) 25 MG tablet Take 1 tablet by mouth Every 6 (Six) Hours As Needed. 0 08/30/2018 5 documented as of this encounter Miscellaneous Notes * [facility] Provider Note - Ela Betancourt PA-C - 11/12/2024 3:30 PM EDT Images from the original note were not included. [place] EMERGENCY DEPARTMENT ENCOUNTER Pt Name: Karolina Montenegro Birthdate: 1950 Date of evaluation: 11/12/2024 Provider: Ela Betancourt PA-C CHIEF COMPLAINT Chief Complaint Patient presents with Back Pain HISTORY OF PRESENT ILLNESS (Location/Symptom, Timing/Onset, Context/Setting, Quality, Duration, Modifying Factors, Severity.) Karolina Montenegro is a 74 y.o. female who presents to the emergency department with worsening of her chronic low back pain. Patient does have a history of lumbar spinal stenosis with neurogenic claudication. She is currently followed by Dr. Linares for pain management. She denies any recent falls. She denies any loss of her bowel or bladder, or saddle anesthesias. Patient was seen at [facility] on Sunday and had a full workup including labs, CT of the abdomen & pelvis, and a cardiac workup. No acute abnormalities were noted. Patient was prescribed Percocet & Methocarbamol, she states she has not been able to get those medications filled due to unknown reasons. Patient appears very anxious, rolling around on the bed, complaining of low back pain radiating down her right leg. She describes it as a nerve pain. When distracted she does stop rolling around onthe bed and answers questions appropriately. Nursing notes were reviewed. REVIEW OF SYSTEMS (2-9 systems for level 4, 10 or more for level 5) Review of Systems Constitutional: Negative for chills and fever. HENT: Negative for ear pain and sore throat. Respiratory: Negative for cough and shortness of breath. Cardiovascular: Negative for chest pain. Gastrointestinal: Negative for diarrhea, nausea and vomiting. Genitourinary: Negative for dysuria and frequency. Musculoskeletal: Positive for back pain. Negative for neck pain. Neurological: Negative for headaches. All systems reviewed and negative except for those discussed in HPI. PAST MEDICAL HISTORY Past Medical History: Diagnosis Date Anxiety Chronic gastritis Colon polyp Diffuse esophageal spasm Heart murmur Hiatal hernia History of Helicobacter pylori infection History of shingles History of stomach ulcers Hypoglycemia Hypothyroidism Immunosuppressive disease Lactose intolerance Mitral valve prolapse SURGICAL HISTORY Past Surgical History: Procedure Laterality Date APPENDECTOMY CHOLECYSTECTOMY COLONOSCOPY ENDOSCOPY HYSTERECTOMY INNER EAR SURGERY TONSILLECTOMY AND ADENOIDECTOMY TUBAL ABDOMINAL LIGATION UPPER GASTROINTESTINAL ENDOSCOPY WISDOM TOOTH EXTRACTION CURRENT MEDICATIONS No current facility-administered medications for this encounter. Current Outpatient Medications: aspirin 81 MG EC tablet, Take 1 tablet by mouth Daily., Disp: , Rfl: diazePAM (VALIUM) 5 MG tablet, TAKE 1 TABLET TWICE A DAY NEEDED FOR NERVES, Disp: , Rfl: 0 Dietary Management Product (Rheumate) capsule, Take 1 capsule by mouth Daily., Disp: 90 capsule, Rfl: 0 diltiaZEM (CARDIZEM) 30 MG tablet, Take 1 tablet by mouth 3 (Three) Times a Day., Disp: , Rfl: 0 Gel Base gel, prilocaine 2% lidocaine 10% imipramine 3% capsaicin 0.001% mannitol 20%, 1 to 2 gramsof cream to the affected areas Q4-6PRN, Disp: 240 g, Rfl: 5 lactulose (CHRONULAC) 10 GM/15ML solution, As Needed., Disp: , Rfl: levothyroxine (SYNTHROID, LEVOTHROID) 100 MCG tablet, Take 1 tablet by mouth Daily., Disp: , Rfl: omeprazole (priLOSEC) 40 MG capsule, TAKE 1 CAPSULE BY MOUTH TWICE DAILY BEFORE MEALS, Disp: 180 capsule, Rfl: 3 ondansetron ODT (ZOFRAN-ODT) 8 MG disintegrating tablet, Place 1 tablet on the tongue Every 8 (Eight) Hours As Needed for Nausea or Vomiting., Disp: 2 tablet, Rfl: 0 promethazine (PHENERGAN) 25 MG tablet, Take 1 tablet by mouth Every 6 (Six) Hours As Needed., Disp:, Rfl: 0 ALLERGIES Hydromorphone, Latex, and Other FAMILY HISTORY Family History Problem Relation Age of Onset Diabetes Mother Colon polyps Neg Hx Colon cancer Neg Hx SOCIAL HISTORY Social History Socioeconomic History Marital status: Tobacco Use Smoking status: Never Passive exposure: Never Smokeless tobacco: Never Vaping Use Vaping status: Never Used Substance and Sexual Activity Alcohol use: No Drug use: No Sexual activity: Defer PHYSICAL EXAM (up to 7 for level 4, 8 or more for level 5) Physical Exam Vitals and nursing note reviewed. Exam conducted with a pharmacology teacher present. HENT: Head: Normocephalic and atraumatic. Eyes: Extraocular Movements: Extraocular movements intact. Pupils: Pupils are equal, round, and reactive to light. Cardiovascular: Rate and Rhythm: Normal rate and regular rhythm. Pulses: Normal pulses. Pulmonary: Effort: Pulmonary effort is normal. Breath sounds: Normal breath sounds. Abdominal: General: Abdomen is flat. Bowel sounds are normal. Palpations: Abdomen is soft. Musculoskeletal: General: Normal range of motion. Cervical back: Normal range of motion. Comments: Pain with palpation of lumbar spine, no bruising or swelling or erythema noted. Skin: General: Skin is warm and dry. Neurological: General: No focal deficit present. Mental Status: She is alert and oriented to person, place, and time. Psychiatric: Mood and Affect: Mood is anxious. DIAGNOSTIC RESULTS EKG: All EKGs are interpreted by the Emergency Department Physician who either signs or Co-signs this chart in the absence of a strike on machine operator. No orders to display RADIOLOGY: Non-plain film images such as CT, Ultrasound and MRI are read by the radiologist. Plain radiographic images are visualized and preliminarily interpreted by the emergency physician with the below findings: [x] Radiologist's Report Reviewed: MRI Lumbar Spine Without Contrast Final Result Impression: 1. Moderate multifactorial degenerative change resulting in central canal, lateral recess, neuroforaminal stenosis with potential transiting and/or exiting nerve contact at multiple levels as detailed above. Electronically Signed: Agusto Abraham MD 11/12/2024 2:16 PM EDT Workstation ID: [id number] ED BEDSIDE ULTRASOUND: Performed by ED Physician - none LABS: I have reviewed and interpreted all of the currently available lab results from this visit (if applicable): Results for orders placed or performed during the hospital encounter of 12/07/21 Comprehensive Metabolic Panel Collection Time: 12/07/21 12:02 PM Specimen: Blood Result Value Ref Range Glucose 107 (H) 65 - 99 mg/dL BUN 5 (L) 8 - 23 mg/dL Creatinine 0.67 0.57 - 1.00 mg/dL Sodium 141 136 - 145 mmol/L Potassium 3.7 3.5 - 5.2 mmol/L Chloride 103 98 - 107 mmol/L CO2 24.0 22.0 - 29.0 mmol/L Calcium 10.0 8.6 - 10.5 mg/dL Total Protein 7.5 6.0 - 8.5 g/dL Albumin 4.90 3.50 - 5.20 g/dL ALT (SGPT) 21 1 - 33 U/L AST (SGOT) 22 1 - 32 U/L Alkaline Phosphatase 104 39 - 117 U/L Total Bilirubin 0.9 0.0 - 1.2 mg/dL Globulin 2.6 gm/dL A/G Ratio 1.9 g/dL BUN/Creatinine Ratio 7.5 7.0 - 25.0 Anion Gap 14.0 5.0 - 15.0 mmol/L eGFR 93.6 >60.0 mL/min/1.73 Lipase Collection Time: 12/07/21 12:02 PM Specimen: Blood Result Value Ref Range Lipase 21 13 - 60 U/L Urinalysis With Microscopic If Indicated (No Culture) - Urine, Clean Catch Collection Time: 12/07/21 12:02 PM Specimen: Urine, Clean Catch Result Value Ref Range Color, UA Yellow Yellow, Straw Appearance, UA Clear Clear pH, UA 5.5 5.0 - 8.0 Specific [place], UA 1.009 1.001 - 1.030 Glucose, UA Negative Negative Ketones, UA 15 mg/dL (1+) (A) Negative Bilirubin, UA Negative Negative Blood, UA Trace (A) Negative Protein, UA Negative Negative Leuk Esterase, UA Trace (A) Negative Nitrite, UA Negative Negative Urobilinogen, UA 1.0 E.U./dL 0.2 - 1.0 E.U./dL Lactic Acid, Plasma Collection Time: 12/07/21 12:02 PM Specimen: Blood Result Value Ref Range Lactate 1.4 0.5 - 2.0 mmol/L CBC Auto Differential Collection Time: 12/07/21 12:02 PM Specimen: Blood Result Value Ref Range WBC 5.92 3.40 - 10.80 10*3/mm3 RBC 5.20 3.77 - 5.28 10*6/mm3 Hemoglobin 15.0 12.0 - 15.9 g/dL Hematocrit 45.5 34.0 - 46.6 % MCV 87.5 79.0 - 97.0 fL MCH 28.8 26.6 - 33.0 pg MCHC 33.0 31.5 - 35.7 g/dL RDW 12.5 12.3 - 15.4 % RDW-SD 39.9 37.0 - 54.0 fl MPV 9.5 6.0 - 12.0 fL Platelets 485 (H) 140 - 450 10*3/mm3 Neutrophil % 74.8 42.7 - 76.0 % Lymphocyte % 17.2 (L) 19.6 - 45.3 % Monocyte % 6.8 5.0 - 12.0 % Eosinophil % 0.0 (L) 0.3 - 6.2 % Basophil % 1.0 0.0 - 1.5 % Immature Grans % 0.2 0.0 - 0.5 % Neutrophils, Absolute 4.43 1.70 - 7.00 10*3/mm3 Lymphocytes, Absolute 1.02 0.70 - 3.10 10*3/mm3 Monocytes, Absolute 0.40 0.10 - 0.90 10*3/mm3 Eosinophils, Absolute 0.00 0.00 - 0.40 10*3/mm3 Basophils, Absolute 0.06 0.00 - 0.20 10*3/mm3 Immature Grans, Absolute 0.01 0.00 - 0.05 10*3/mm3 nRBC 0.0 0.0 - 0.2 /100 WBC Urinalysis, Microscopic Only - Urine, Clean Catch Collection Time: 12/07/21 12:02 PM Specimen: Urine, Clean Catch Result Value Ref Range RBC, UA 0-2 None Seen, 0-2 /HPF WBC, UA 0-2 None Seen, 0-2 /HPF Bacteria, UA None Seen None Seen, Trace /HPF Squamous Epithelial Cells, UA 0-2 None Seen, 0-2 /HPF Hyaline Casts, UA 0-6 0 - 6 /LPF Methodology Automated Microscopy Green Top (Gel) Collection Time: 12/07/21 12:02 PM Result Value Ref Range Extra Tube Hold for add-ons. Lavender Top Collection Time: 12/07/21 12:02 PM Result Value Ref Range Extra Tube hold for add-on Gold Top - SST Collection Time: 12/07/21 12:02 PM Result Value Ref Range Extra Tube Hold for add-ons. June Top Collection Time: 12/07/21 12:02 PM Result Value Ref Range Extra Tube Hold for add-ons. All other labs were within normal range or not returned as of this dictation. EMERGENCY DEPARTMENT COURSE and DIFFERENTIAL DIAGNOSIS/MDM: Vitals: Vitals: 11/12/24 1157 11/12/24 1200 11/12/24 1300 BP: 153/84 Pulse: 75 65 Resp: 20 Temp: 98 ??F (36.7 ??C) TempSrc: Oral SpO2: 98% 100% Weight: 63.5 kg (140 lb) Height: 172.7 cm (68 ) MDM Ddx: anxiety, chronic pain, DDD Patient was evaluated, imaging was obtained. No acute abnormalities noted. Patient was advised to follow-up with her pain management doctor. She was advised to fill the medication that was prescribedfew days ago for her pain. Patient resting comfortably on the bed, smiling, talkative upon my initial re- evaluation but once Ifully entered the room she started saying that her back was still hurting. I had a discussion with the patient/family regarding diagnosis, diagnostic results, treatment plan,and medications. The patient/family indicated understanding of these instructions. I spent adequatetime at the bedside preceding discharge necessary to personally discuss the aftercare instructions, giving patient education, providing explanations of the results of our evaluations/findings, and mydecision making to assure that the patient/family understand the plan of care. Time was allotted toanswer questions at that time and throughout the ED course. Emphasis was placed on timely follow-upafter discharge. I also discussed the potential for the development of an acute emergent condition requiring further evaluation, admission, or even surgical intervention. I discussed that we found nothing during the visit today indicating the need for further workup, admission, or the presence of an unstable medical condition. I encouraged the patient to return to the emergency department immediately for ANY concerns, worsening, new complaints, or if symptoms persist and unable to seek follow-up in a timely fashion. The patient/family expressed understanding and agreement with this plan. The patient will follow-up with pain management for reevaluation. MEDICATIONS ADMINISTERED IN ED: Medications oxyCODONE-acetaminophen (PERCOCET) 5-325 MG per tablet 1 tablet (1 tablet Oral Given 11/12/24 1248) PROCEDURES: Procedures:none CRITICAL CARE TIME Total Critical Care time was 0 minutes, excluding separately reportable procedures. There was a high probability of clinically significant/life threatening deterioration in the patient's condition which required my urgent intervention. FINAL IMPRESSION 1. Spinal stenosis of lumbar region, unspecified whether neurogenic claudication present 2. Chronic midline low back pain with right-sided sciatica 3. Degeneration of intervertebral disc of lumbar region with discogenic back pain DISPOSITION/PLAN ED Disposition ED Disposition Discharge Condition Stable Comment -- PATIENT REFERRED TO: Juan Linares MD [address] [place] [address] [place] [id number] As needed DISCHARGE MEDICATIONS: Medication List CONTINUE taking these medications aspirin 81 MG EC tablet diazePAM 5 MG tablet Commonly known as: VALIUM dilTIAZem 30 MG tablet Commonly known as: CARDIZEM Gel Base gel prilocaine 2% lidocaine 10% imipramine 3% capsaicin 0.001% mannitol 20%, 1 to 2 grams of cream to the affected areas Q4-6PRN lactulose 10 GM/15ML solution Commonly known as: CHRONULAC levothyroxine 100 MCG tablet Commonly known as: SYNTHROID, LEVOTHROID omeprazole 40 MG capsule Commonly known as: priLOSEC TAKE 1 CAPSULE BY MOUTH TWICE DAILY BEFORE MEALS ondansetron ODT 8 MG disintegrating tablet Commonly known as: ZOFRAN-ODT Place 1 tablet on the tongue Every 8 (Eight) Hours As Needed for Nausea or Vomiting. promethazine 25 MG tablet Commonly known as: PHENERGAN Rheumate capsule Take 1 capsule by mouth Daily. Comment: Please note this report has been produced using speech recognition software. Ela Betancourt PA-C Cosigned by Carlos Griffin MD at 11/19/2024 7:04 AM EDT Associated attestation - Carlos Griffin MD - 11/19/2024 7:04 AM EDT SUPERVISE: For this patient encounter, I reviewed the APC's documentation, treatment plan, and medical decision making. Carlos Griffin MD 11/19/2024 07:04 EDT documented in this encounter Plan of Treatment Upcoming Encounters Date Type Department Care Team (Late st Contact Info) Description 01/14/2025 7:30 AM EDT Office Visit [facility] [address] [facility] [address] [place] [id number] Elissa Rick, [employer]BRAS[employer]ATING MACHINE OPERATOR [address] [facility] [address] [place] [address] documented as of this encounter Procedures Procedure Name Priority Date/Time Associated Diagnosis Comments MRI LUMBAR SPINE WO CONTRAST STAT 11/12/2024 2:05 PM EDT documented in this encounter Results * MRI Lumbar Spine Without Contrast (11/12/2024 2:05 PM EDT) Anatomical Region Laterality Modality Spine, L-spine N/A Magnetic Resonan ce 11/12/2024 2:09 PM EDT Impressions 11/12/2024 2:16 PM EDT Impression: 1. Moderate multifactorial degenerative change resulting in central canal, lateral recess, neuroforaminal stenosis with potential transiting and/or exiting nerve contact at multiple levels as detailed above. Electronically Signed: Agusto Abraham MD 11/12/2024 2:16 PM EDT Workstation ID: [id number] Narrative 11/12/2024 2:16 PM EDT MRI LUMBAR SPINE WO CONTRAST Date of Exam: 11/12/2024 1:39 PM EDT Indication: severe back pain. Comparison: None available. Technique: Routine multiplanar/multisequence sequence images of the lumbar spine were obtained without contrast administration. Findings: ALIGNMENT: Normal AP alignment. There is left convex curvature of the upper lumbar spine and right convex curvature of the lower lumbar spine. DISK SPACE: There is moderate spondylosis throughout the lumbar spine. VERTEBRA: No fracture or destructive process. No marrow edema. No significant active nor fatty endplate change. CORD: Distal spinal cord and conus medullaris appear unremarkable terminating above the L2 level. SOFT TISSUES: Paraspinal muscle atrophy. The common bile duct is dilated measuring 1.1 cm in diameter which can be normal for postcholecystectomy patient. No mass nor lymphadenopathy. LEVELS: T12-L1: No focal disc protrusion or extrusion. Facet joints appear unremarkable. No significant neural foraminal or spinal canal stenosis. L1-L2: Circumferential disc bulge and endplate osteophyte formation with more pronounced left lateral component. Mild central canal, lateral recess, neuroforaminal stenosis. L2-L3: Circumferential disc bulge and endplate osteophyte formation with more pronounced right lateral component. Mild to moderate facet arthropathy and right ligamentum flavum thickening. Mild central canal and left lateral recess stenosis. There is mild to moderate right lateral recess and more moderate right neuroforaminal stenosis at potential contact of the exiting right L1 nerve. L3-L4: Circumferential disc bulge and endplate osteophyte formation with more pronounced right lateral component. Moderate arthropathy and ligamentum flavum thickening. Moderate lateral recess and neuroforaminal stenosis with potential bilateral transiting nerve contact. There is moderate to severe right neuroforaminal stenosis with probable contact of the exiting right L3 nerve. L4-L5: Circumferential disc bulge and endplate osteophyte formation with more pronounced left lateral component. Moderate facet arthropathy and ligamentum flavum thickening. Mild central canal and right lateral recess stenosis. More moderate left lateral recess stenosis with potential contact of the exiting left L5 nerve. Mild to moderate right and moderate left neuroforaminal stenosis potential contact of the exiting left L4 nerve. L5-S1: Circumferential disc bulge and endplate osteophyte formation. Moderate left and more mild right facet arthropathy. Mild central canal with mild to moderate lateral recess stenosis. There is moderate left and mild to moderate right neuroforaminal stenosis with potential contact of the exiting left L5 nerve. Procedure Note Agusto Abraham MD - 11/12/2024 MRI LUMBAR SPINE WO CONTRAST Date of Exam: 11/12/2024 1:39 PM EDT Indication: severe back pain. Comparison: None available. Technique: Routine multiplanar/multisequence sequence images of thelumbar spine were obtained without contrast administration. Findings: ALIGNMENT: Normal AP alignment. There is left convex curvature of theupper lumbar spine and right convex curvature of the lower lumbar spine. DISK SPACE: There is moderate spondylosis throughout the lumbar spine. VERTEBRA: No fracture or destructive process. No marrow edema. Nosignificant active nor fatty endplate change. CORD: Distal spinal cord and conus medullaris appear unremarkableterminating above the L2 level. SOFT TISSUES: Paraspinal muscle atrophy. The common bile duct is dilatedmeasuring 1.1 cm in diameter which can be normal for postcholecystectomypatient. No mass nor lymphadenopathy. LEVELS: T12-L1: No focal disc protrusion or extrusion. Facet joints appearunremarkable. No significant neural foraminal or spinal canal stenosis. L1-L2: Circumferential disc bulge and endplate osteophyte formation withmore pronounced left lateral component. Mild central canal, lateralrecess, neuroforaminal stenosis. L2-L3: Circumferential disc bulge and endplate osteophyte formation withmore pronounced right lateral component. Mild to moderate facetarthropathy and right ligamentum flavum thickening. Mild central canal andleft lateral recess stenosis. There is mild to moderate right lateral recess and more moderate rightneuroforaminal stenosis at potential contact of the exiting right [id number]. L3-L4: Circumferential disc bulge and endplate osteophyte formation withmore pronounced right lateral component. Moderate arthropathy andligamentum flavum thickening. Moderate lateral recess and neuroforaminalstenosis with potential bilateral transiting nerve contact. There is moderate to severe right neuroforaminalstenosis with probable contact of the exiting right L3 nerve. L4-L5: Circumferential disc bulge and endplate osteophyte formation withmore pronounced left lateral component. Moderate facet arthropathy andligamentum flavum thickening. Mild central canal and right lateral recessstenosis. More moderate left lateral recess stenosis with potential contact of the exiting left L5 nerve. Mildto moderate right and moderate left neuroforaminal stenosis potentialcontact of the exiting left L4 nerve. L5-S1: Circumferential disc bulge and endplate osteophyte formation.Moderate left and more mild right facet arthropathy. Mild central canalwith mild to moderate lateral recess stenosis. There is moderate left andmild to moderate right neuroforaminal stenosis with potential contact of the exiting left L5 nerve. IMPRESSION: Impression: 1. Moderate multifactorial degenerative change resulting in centralcanal, lateral recess, neuroforaminal stenosis with potential transitingand/or exiting nerve contact at multiple levels as detailed above. 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 [AMANDA] Do not exceed 4 grams of acetaminophen in a 24 hr period. Max dose of 2gm for AST/ALT greater than 120 units/L If given for pain, use the following pain scale: Mild Pain = Pain Score of 1-3, CPOT 1-2 Moderate Pain = Pain Score of 4-6, CPOT 3-4 Severe Pain = Pain Score of 7-10, CPOT 5-8 Given 11/12/2024 12:48 PM EDT 1 tablet documented in this encounter Active and Recently Administered Medications Times are shown in EDT. Scheduled Medication Order 11/10/2024 11/11/2024 11/12/2024 oxyCODONE-acetaminophen (PERCOCET) 5-325 MG per tablet 1 tablet (COMPLETED) 1 tablet, Oral, Once, On Sun11/12/24 at 1245, For 1 dose, Based on patient request - if ordered for moderate or severe pain, provider allows for administration of a medication prescribed for a lower pain scale. [AMANDA] Do not exceed 4 grams of acetaminophen in a 24 hr period. Max dose of 2gm for AST/ALT greater than 120 units/L If given for pain, use the following pain scale: Mild Pain = Pain Score of 1-3, CPOT 1-2 Moderate Pain = Pain Score of 4-6, CPOT 3-4 Severe Pain = Pain Score of 7-10, CPOT 5-8 1248 (Given - Provid er: Luis M Peralta RN) documented in this encounter Care Teams Serger Relationship Specialty Start Date End Date Maximo Cash MD [facility] [place] [id number] [address] [facility] [address] PCP - General Internal Medicine 09/16/18 documented as of this encounter
--- OUTSIDE RECORDS SUMMARY | 2024-11-19 08:00 | XMS_ITS | Encounter Summary ---
[facility] Address [address] [place] [address] Care Team Providers Care Marketing Program Coordinator Name Role Phone Maximo Cash MD Primary Care Provider [phone] Encounter Details Date Type Department Care Team (Late st Contact Info) Description 11/19/2024 8:00 AM EDT Office Visit [facility] [address] [facility] [address] [place] [address] Elissa Rick, JUNIOR ADMINISTRATIVE ASSISTANT [address] [facility] [address] [place], [place] [id number] Lumbar stenosis with neurogenic claudication; Degeneration of intervertebral disc of lumbar region with discogenic back pain and lower extremity pain; Scoliosis of thoracolumbar spine, unspecified scoliosis type; Spondylosis of lumbar region without myelopathy or radiculopathy; Myofascial pain; Generalized anxiety disorder Social History Tobacco Use Types Packs/Day Years [...] Present no 11/12/2024 PHQ-2 Answer Date Recorded Patient Health Questionnaire-9 Score 9 11/19/2024 Comments No Sex and Gender Information Value Date Recorded Sex Assigned at Not on file Legal Sex Female 1:48 PM EDT Gender Identity Not on file Sexual Orientation Not on file documented as of this encounter Last Filed Vital Signs Vital Sign Reading Time Taken Comments Blood Pressure - - Pulse - - Temperature - - Respiratory Rate - - Oxygen Saturation - - Inhaled Oxygen Concentration - - Weight 63 kg (139 lb) 11/19/2024 7:52 AM EDT Height 172.7 cm (5' 7.99 ) 11/19/2024 7:52 AM ED T Body Mass Index 21.14 11/19/2024 7:52 AM EDT documented in this encounter Functional Status documented as of this encounter Progress Notes * Elissa Rick, JUNIOR ADMINISTRATIVE ASSISTANT - 11/19/2024 8:00 AM EDT Chief Complaint: Right lower extremity pain. History of Present Illness: Patient: Ms. Karolina Montenegro, 74 y.o. female referred by Dr Simone Green, in consultation for chronic intractable abdominal pain. Patient reports a longstanding history of chronic abdominal pain. She is a former patient seen in 2019 for chronic abdominal pain. She also requested to be evaluated for her lower back pain. She also has a history of esophageal spasms responsive to Cardizem. MRCP revealed no evidence of choledocholithiasis. She underwent follow up consultation withDr. Simone Grene on 05/23/2023. Per Dr. Green, a recent CAT scan of the abdomen and pelvis with and without contrast on 05/11/2023 was unrevealing. She is up-to-date on her coloncancer screening having had a colonoscopy on 05/24/2022 that was unremarkable except for diverticulosis in the sigmoid colon and descending colon. Two 6 mm polyps in the transverse colon and descending colon were removed. On the same occasion, she underwent EGD and was found to have an esophageal stricture which was dilated. She is still experiencing mild dysphagia to solids.she has also been diagnosed with gastroparesis. Pain is mostly localized in the left upper quadrant with some radiation into the lumbar region and into the left hip.she has failed to obtain pain relief with conservative me asures for the past years including oral analgesics, topical analgesics, ice, heat, independent exercise program (ongoing), to name a few. In regards to her lower back pain. Dr. Linares ordered updated imaging, and she underwent an MRI of the lumbar spine on 08/19/2023 which revealed advanced generative changes with levoscoliosis, L2-L3, there is a disc osteophyte complex formation with moderate central spinal stenosis and moderate right with mild left foraminal stenosis. At L3-L4 there is severe central spinal stenosis with moderate foraminal stenosis. At L4-L5 there is moderate to severe left foraminal stenosis. We last saw her on 04/21/2024, when she underwent a diagnostic and therapeutic left L3-L4 and left L4-L5 transforaminal epidural steroid injection, from which today she tells me provided her with about 80% pain relief and functional improvement lasting almost 4 to 5 months. She has canceled several follow-ups with me, due to the severity of her pain and a fall. She was seen in the emergency department on 07/17/2024, with complaints of a mechanical fall. She reported she tripped and fell landing on her left lower back, left knee and left hip. She was given some pain medication, diagnostics were obtained and she was discharged home the same day. Apparently, her fall caused quite a bit of injury to her left foot, she experienced a hematoma, which had to be drained by an orthopedic. She additionally had to be placed on antibiotics due to infection. Recently, on 11/12/2024 she was evaluated in the emergency department again due to severe back pain. She reported low backpain with radiation into her right lower extremity. She reports onset of the new right lower extremity pain, only over about the past 6 weeks. Her pain is quite severe. She is in wheelchair, as she cannot bear weight on her leg. New MRI of the lumbar spine without contrast was obtained at the emergency department, this revealed once again levoscoliosis of the lumbar spine, with advanced degenerative disc disease. At L2-L3 there is a disc bulge with osteophyte formations with facet hypertrophy and ligamentum flavum thickening with mild central spinal stenosis as well as left lateral recess sten osis, and moderate right neuroforaminal stenosis with possible contact of the exiting nerve roots on the right. At L3-L4 there is a disc bulge with osteophyte formations with facet hypertrophy and ligamentum flavum thickening with severe central spinal stenosis. Moderate to severe right neuroforaminal stenosis with probable contact of the exiting right L3 nerve root. At L4-L5 there is a disc bulge with osteophyte formations with facet hypertrophy and ligamentum flavum thickening with moderate central spinal stenosis and right lateral recess stenosis with potential contact of the exiting left L4 and L5 nerve roots. At L5-S1 there is a disc bulge with osteophyte formations with facet hypertrophy with mild central spinal stenosis mild to moderate lateral recess stenosis, and moderate left and mild to moderate right neuroforaminal stenosis. Pain Description: Constant right lower extremity pain with intermittent exacerbation, described as aching, dull, sharp, and numbness, throbbing sensation. Radiation of Pain: The pain radiates into the right hip, right gluteal region, into the right thigh, calf and right foot associated with numbness Pain intensity today: 10/10 Average pain intensity last week: 10/10 Pain intensity ranges from: 8/10 to 10/10 Aggravating factors: Pain increases with movement, bending, extension, twisting, protracted sitting, standing, walking. Patient describes neurogenic claudication. Patient is in a wheelchair today. Alleviating factors: Pain decreases with lying down, changing positions, moving away from the site of pain Associated Symptoms: Patient reports pain, numbness, pain weakness in the lower extremities. Patient denies any new bladder or bowel problems. Patient reports difficulties with her balance but denies recent falls. Pain interferes with ADLs, general activities (ability to walk, stand, transition from different positions), and affects patient's quality of life Pain interferes with sleep: falling asleep and causing sleep fragmentation Muscle spasms Stiffness Review of previous therapies and additional medical records: Karolina Montenegro has already failed the following measures, including: Conservative Measures: Oral analgesics, topical analgesics, ice, heat, independent exercise program(ongoing) Interventional Measures: 04/07/2020, she underwent diagnostic and therapeutic left L4-L5 TFESI 06/20/2023: diagnostic and therapeutic left 9th and 10th intercostal nerve blocks 04/21/2024: DxTx left L3-L4 and left L4-L5 transforaminal epidural steroid injection Surgical Measures: History of abdominal surgeries: Appendectomy; cholecystectomy; hysterectomy; Tubal ligation Karolina Montenegro presents with significant comorbidities including anxiety, hiatal hernia, hypothyroidism, mitral valve prolapse, gastroparesis, on aspirin 81 mg In terms of current analgesics, Karolina Montenegro takes: None. Failed Elavil. Patient takes diazepam, promethazine I have reviewed Aime Report consistent with medication reconciliation. SOAPP/ORT: Low Risk Global Pain Scale 06-05 Pain 15 24 Feelings 4 0 Clinical outcomes 14 15 Activities 9 18 GPS Total: 42 57 The [place] Back Pain Disability Scale DATE 06-05 Sleep through the night 5 3 Turn over in bed 4 4 Get out of bed 3 4 Make your bed 4 4 Put on socks (pantyhose) 3 3 Ride in a car 3 3 Sit in a chair for several hours 4 2 Stand up for 20-30 minutes 4 5 Climb one flight of stairs 4 5 Walk a few blocks (200-300 yards) 4 5 Walk several miles 5 5 Run one block (about 50 yards) 5 5 Take food out of the refrigerator 4 0 Reach up to high shelves 5 2 Move a chair 4 2 Pull or push heavy doors 4 3 Bend over to clean the bathtub 5 4 Throw a ball 4 4 Carry two bags of groceries 4 5 Lift and carry a heavy suitcase 5 5 Total score 79 63 Review of New Diagnostic Studies: MRI of the lumbar spine without contrast 11/12/2024: levoscoliosis of the lumbar spine, with advanced degenerative disc disease. At L2-L3 there is a disc bulge with osteophyte formations with facet hypertrophy and ligamentum flavum thickening with mild central spinal stenosis as well as left lateralrecess stenosis, and moderate right neuroforaminal stenosis with possible contact of the exiting nerve roots on the right. At L3-L4 there is a disc bulge with osteophyte formations with facet hypertrophy and ligamentum flavum thickening with severe central spinal stenosis. Moderate to severe right neuroforaminal stenosis with probable contact of the exiting right L3 nerve root. At L4-L5 there is a disc bulge with osteophyte formations with facet hypertrophy and ligamentum flavum thickening withmoderate central spinal stenosis and right lateral recess stenosis with potential contact of the exiting left L4 and L5 nerve roots. At L5-S1 there is a disc bulge with osteophyte formations with face t hypertrophy with mild central spinal stenosis mild to moderate lateral recess stenosis, and moderate left and mild to moderate right neuroforaminal stenosis. Lumbar spine x-rays with flexion-extension views 09/13/2023: Retrolisthesis of L2 on L3, moderate discogenic changes at L2-L3 and L3-L4. Diffuse facet arthritis and advanced generative disc disease. No instability. MRI of the thoracic spine 08/19/2023: Perineural cyst in the left T9-T10 neuroforamen. Perineural cyst in the left neuroforamen at T11-T12. No evidence of high-grade central spinal stenosis. Review of Diagnostic Studies: Colonoscopy 05/24/2022 diverticulosis in the sigmoid colon and descending colon. Two 6 mm polyps in the transverse colon and descending colon were removed. CT of the abdomen and pelvis with and without contrast on 05/11/2023: No evidence of acute intra-abdominal process. Review of Systems Constitutional: Positive for activity change, appetite change and fatigue. Musculoskeletal: Positive for back pain. Neurological: Positive for weakness, numbness and headaches. Psychiatric/Behavioral: The patient is nervous/anxious. All other systems reviewed and are negative. 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 Scoliosis of thoracolumbar spine Past Medical History: Diagnosis Date Anxiety Chronic gastritis Colon polyp Diffuse esophageal spasm Heart murmur Hiatal hernia History of Helicobacter pylori infection History of shingles History of stomach ulcers Hypoglycemia Hypothyroidism Immunosuppressive disease Lactose intolerance Mitral valve prolapse Past Surgical History: Procedure Laterality Date APPENDECTOMY CHOLECYSTECTOMY COLONOSCOPY ENDOSCOPY HYSTERECTOMY INNER EAR SURGERY TONSILLECTOMY AND ADENOIDECTOMY TUBAL ABDOMINAL LIGATION UPPER GASTROINTESTINAL ENDOSCOPY WISDOM TOOTH EXTRACTION Family History Problem Relation Age of Onset Diabetes Mother Colon polyps Neg Hx Colon cancer Neg Hx Social History Socioeconomic History Marital status: Tobacco Use Smoking status: Never Passive exposure: Never Smokeless tobacco: Never Vaping Use Vaping status: Never Used Substance and Sexual Activity Alcohol use: No Drug use: No Sexual activity: Defer Current Outpatient Medications: aspirin 81 MG EC [...] Times a Day., Disp: , Rfl: 0 lactulose (CHRONULAC) 10 GM/15ML solution, As Needed., Disp: , Rfl: levothyroxine (SYNTHROID, LEVOTHROID) 112 MCG tablet, Take 1 tablet by mouth Daily., Disp: , Rfl: omeprazole (priLOSEC) 40 MG capsule, TAKE 1 CAPSULE BY MOUTH TWICE DAILY BEFORE MEALS, Disp: 180 capsule, Rfl: 3 promethazine (PHENERGAN) 25 MG tablet, Take 1 tablet by mouth Every 6 (Six) Hours As Needed., Disp:, Rfl: 0 Gel Base gel, prilocaine 2% lidocaine 10% imipramine 3% capsaicin 0.001% mannitol 20%, 1 to 2 gramsof cream to the affected areas Q4-6PRN (Patient not taking: Reported on 11/19/2024), Disp: 240 g, Rfl: 5 levothyroxine (SYNTHROID, LEVOTHROID) 100 MCG tablet, Take 1 tablet by mouth Daily. (Patient not taking: Reported on 11/19/2024), Disp: , Rfl: ondansetron ODT (ZOFRAN-ODT) 8 MG disintegrating tablet, Place 1 tablet on the tongue Every 8 (Eight) Hours As Needed for Nausea or Vomiting. (Patient not taking: Reported on 11/19/2024), Disp: 2 tablet, Rfl: 0 Allergies Allergen Reactions Hydromorphone Unknown - Low Severity Latex Hives and Rash Other Hives and Rash Stagesic Ht 172.7 cm (67.99 ) Wt 63 kg (139 lb) BMI 21.14 kg/m?? Physical Exam: Constitutional: Patient appears well-developed, well-nourished, well-hydrated, appears younger thanstated age HEENT: Head: Normocephalic and atraumatic Eyes: Conjunctivae and lids are normal Pupils: Equal, round, reactive to light Musculoskeletal Gait and station: Gait evaluation demonstrated antalgia and shuffling, she has to walk with assistance. She is in a wheelchair today. Lumbar Spine: Passive and active range of motion are limited secondary to pain. Extension, flexion,lateral flexion, rotation of the lumbar spine increased and reproduced pain. Lumbar facet joint loading maneuvers are positive. Hip Joints: The range of motion of the hip joints is limited to flexion and internal rotation but without pain Palpation of the bilateral greater trochanters: Unrevealing Examination of the Iliotibial band: Unrevealing Neurological: Patient is alert and oriented to person, place, and time. Speech: Normal. Cortical function: Normal mental status. Reflex Scores: Right patellar: 1+ Left patellar: 1+ Right Achilles: 1+ Left Achilles: 1+ Motor strength: 5/5 Motor Tone: Normal Involuntary movements: None. Superficial/Primitive Reflexes: Primitive reflexes were absent. Right Aguilera: Absent Left Aguilera: Absent Right ankle clonus: Absent Left ankle clonus: Absent Babinsky: Absent Long tract signs: Negative. Straight leg raising test: Positive on the right. Sensory exam: Intact to light touch, intact pain and temperature sensation, intact vibration sensation and normal proprioception Coordination: Finger to nose: Normal. Balance: Normal Romberg's sign:Negative Skin and subcutaneous tissue: Skin is warm and intact. No rash noted. No cyanosis. Psychiatric: Judgment and insight: Normal. Recent and remote memory: Intact. Mood and affect: Normal. ASSESSMENT: 1. Lumbar stenosis with neurogenic claudication 2. Degeneration of intervertebral disc of lumbar region with discogenic back pain and lower extremity pain 3. Scoliosis of thoracolumbar spine, unspecified scoliosis type 4. Spondylosis of lumbar region without myelopathy or radiculopathy 5. Myofascial pain 6. Generalized anxiety disorder PLAN/MEDICAL DECISION MAKING: Ms. Karolina Montenegro, 74 y.o. female referred by Dr Simone Green, in consultation for chronic intractable abdominal pain. Patient reports a longstanding history of chronic abdominal pain. She is a former patient seen in 2019 for chronic abdominal pain. She also requested to be evaluated for her lower back pain. She also has a history of esophageal spasms responsive to Cardizem. MRCP revealed no evidence of choledocholithiasis. She underwent followup consultation with Dr. Simone Green on 05/23/2023. Per Dr. Green, a recent CAT scan of the abdomen and pelvis with and without contrast on 05/11/2023 was unrevealing. She is up-to-date on her colon cancer screening having had a colonoscopy on 05/24/2022 that was unremarkable except for diverticulosis in the sigmoid colon and descending colon. Two 6 mm polyps in the transverse colon and descending colon were removed. On the same occasion, she underwent EGD and was found tohave an esophageal stricture which was dilated. She is still experiencing mild dysphagia to solids.she has also been diagnosed with gastroparesis. Pain is mostly localized in the left upper quadrant with some radiation into the lumbar region and into the left hip.she has failed to obtain pain relief with conservative measures for the past years including oral analgesics, topical analgesics, ice, heat, independent exercise program (ongoing), to name a few. In regards to her lower back pain. Dr. Linares ordered updated imaging, and she underwent an MRI of the lumbar spine on 08/19/2023 which revealed advanced generative changes with levoscoliosis, L2-L3, there is a disc osteophyte complex formation with moderate central spinal stenosis and moderate right with mild left foraminal stenosis. At L3-L4 there is severe central spinal stenosis with moderate foraminal stenosis. At L4-L5 there is moderate to severe left foraminal stenosis. We last saw her on 04/21/2024, when she underwent a diagnostic and therapeutic left L3-L4 and left L4-L5 transforaminal epidural steroid injection, from which today she tells me provide her with pain relief and functional improvement lasting. She has canceled several follow-ups with me, due to the severity of her pain and a fall. She was seen in the emergency department on 07/17/2024, with complaints of a mechanical fall. She reported she tripped and fell landing on her left lower back, left knee and left hip. She was given some pain medication, diagnostics were obtained and she was discharged home the same day. Apparently, her fall caused quite a bit of injury to her left foot, she experienced a hematoma, which had to be drained by an orthopedic.She additionally had to be placed on antibiotics due to infection. Recently, on 11/12/2024 she was evaluated in the emergency department again due to severe back pain. She reported low back pain with radiation into her right lower extremity. New MRI of the lumbar spine without contrast was obtained at the emergency department, this revealed once again levoscoliosis of the lumbar spine, with advanced degenerative disc disease. At L2-L3 there is a disc bulge with osteophyte formations with facet hypertrophy and ligamentum flavum thickening with mild central spinal stenosis as well as left lateral recess stenosis, and moderate right neuroforaminal stenosis with possible contact of the exiting ne rve roots on the right. At L3-L4 there is a disc bulge with osteophyte formations with facet hypertrophy and ligamentum flavum thickening with severe central spinal stenosis. Moderate to severe rightneuroforaminal stenosis with probable contact of the exiting right L3 nerve root. At L4-L5 there rip disc bulge with osteophyte formations with facet hypertrophy and ligamentum flavum thickening with moderate central spinal stenosis and right lateral recess stenosis with potential contact of the exiting left L4 and L5 nerve roots. At L5-S1 there is a disc bulge with osteophyte formations with facet hypertrophy with mild central spinal stenosis mild to moderate lateral recess stenosis, and moderate left and mild to moderate right neuroforaminal stenosis. She is in severe pain. She is unable to ambulate on her own. I had a lengthy conversation with Ms. Karolina Montenegro regarding her chronic pain condition and potential therapeutic options including risks, benefits, alternative therapies, to name a few. We have discussed using a stepwise approach starting with the least intense level of care as determined by the extent required to diagnose and or treat a patient's condition. The proposed treatments are consistent with the patient's medical condition and known to be safe and effective by current guidelines and the standard of care. The duration and frequency proposed are considered appropriate for the service in accordance with accepted standards of medical practice for the diagnosis and treatment of the patient's condition and intended to improve the patient's level of function. These services will be furnished in a setting appropriate to the patient's medical needs and condition. Therefore, I have proposed the following plan: 1. Interventional pain management measures: Patient does not take blood thinners except for ASA. A. 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 It has also been discussed prospects of a peripheral nerve stimulator with Sprint Extensa dual- lead system B. Chronic Lower Back Pain/LSS: Patient will be scheduled for diagnostic and therapeutic right L3-L4 and right L4-L5 transforaminal steroid injections. We may repeat epidural depend on patient's outcome.she also has left lower extremity pain, which we may consider repeating left-sided transforaminal. Other options include diagnostic lumbar medial branch blocks, diagnostic thoracic medial branch blocks, MILD, Vertiflex, SCS, ITT, a spinal cord stimulator trial although she is not quite interested in advanced pain therapies at this time. 2. Diagnostic studies: A. Prior to MILD, SCS trial, ITT: CBC, PT, PTT 3. Pharmacological measures: Reviewed and discussed; A. Patient takes None. Failed Elavil. Patient takes diazepam, promethazine 4. Long-term rehabilitation efforts: A. The patient has a history of falls. I did complete a risk assessment for falls. Fall precautions: Patient has been instructed regarding universal fall precautions, such as; Using gait aids a cane or a rolling walker at the appropriate height at all times for ambulation orwheelchair Removing all area rugs and coffee tables to create a safe environment at home Ensure clean, dry floors Wearing supportive footwear and properly fitting clothing Ensure bed/chair is appropriate height and patient's feet can touch the floor Using a shower transfer bench Using walk-in shower and having shower safety bars installed Ensure proper lighting, minimize glare Have nightlights operational and in use Participation in an exercise program for gait training, balance training and strength Avoid carrying laundry up and down steps Ensure proper compliance and organization of medications to avoid errors Avoid use of over the counter sedatives and alcohol consumption Ensure easy access to call whitlock, glasses, TV control, telephone Ensure glasses/hearing aids are in use or close by (on top of night table) B. Patient will start a comprehensive physical therapy program for Alter-G, gait and balance training, neurodynamics, core strengthening, gluteal and abductor strengthening, ultrasound, ASTYM, E-STIM, myofascial release, cupping, dry needling, home exercise program C. Contrast therapy: Apply ice-packs for 15-20 minutes, followed by heating pads for 15-20 minutes to affected area D. Start a low impact exercise program such as water therapy, swimming, yoga E. Prior to SCS: Referral to Dr. Orlando Brown for psychological screening for spinal cord stimulation and intrathecal therapies. Tiera Montenegro reports that she has never smoked. She has never been exposed to tobacco smoke. She has never used smokeless tobacco. 5. The patient has been instructed to contact my office with any questions or difficulties. The patient understands the plan and agrees to proceed accordingly. Patient does not receive prescriptions for controlled substances from this office. Therefore, a controlled substance agreement is not medically necessary at this time. Pain Medications aspirin 81 MG EC tablet Take 1 tablet by mouth Daily. No orders of the defined types were placed in this encounter. Please note that portions of this note were completed with a voice recognition program. Any copied data in any portion of my note has been reviewed by myself and accurate. The Cures Act makes medical notes like this available to patients in the interest of transparency. This is a medical document intended as peer to peer communication. It is written in medical language and may contain abbreviations or verbiage that are unfamiliar. It may appear blunt or direct. Medical documents are intended to carry relevant information, facts as evident, and the clinical opinion of the practitioner. Elissa Rick APRN Patient Care Team: Maximo Cash MD as PCP - General (Internal Medicine) Elissa Rick APRN as Nurse Practitioner (Nurse Practitioner) No orders of the defined types were placed in this encounter. No future appointments. documented in this encounter Plan of Treatment Upcoming Encounters Date Type Department Care Team (Late st Contact Info) Description 01/14/2025 7:30 AM EDT Office Visit [facility] [address] [facility] [address] [place] [address] Elissa Rick APRN [address] [facility] [address] [place] [address] documented as of this encounter Visit Diagnoses Diagnosis Lumbar stenosis with neurogenic claudication Degeneration of intervertebral disc of lumbar region with discogenic back pain and lower extremity pain Scoliosis of thoracolumbar spine, unspecified scoliosis type Spondylosis of lumbar region without myelopathy or radiculopathy Myofascial pain Unspecified myalgia and myositis Generalized anxiety disorder documented in this encounter Care Teams Marketing Program Coordinator Relationship Specialty Start Date End Date Maximo Cash MD [address] [facility] [address] [place] [address] PCP - General Internal Medicine 09/16/18 documented as of this encounter
--- OUTSIDE RECORDS SUMMARY | 2024-11-19 12:00 | XMS_ITS | Encounter Summary ---
Author Organization [facility] Address [address] [place] [id number] Care Team Providers Care Environmental Change Analyst Name Role Phone Maximo Cash MD Primary Care Provider [phone] Reason for Visit * Surgical (Routine) - Closed Specialty Diagnoses / Procedures Referred By Conttaylor t Referred To Contact Pain Medicine Diagnoses Lumbar stenosis with neurogenic claudication Procedures External Facility Surgical/Procedural Request Juan Linares MD [address] [place] [address] Phone: tel: fax: [facility] AT [address] [place] [address] Phone: tel: fax: Referral ID Status Reason Start Date Expiration Date V isits Requested Visits Authorized [id number] Closed Other 11/19/2024 12/20/2024 1 1 Encounter Details Date Type Department Care Team (Late st Contact Info) Description 11/19/2024 12:00 PM EDT Outside Facility Service [facility] [address] [phone] Juan Linares MD [address] [place] [address] Social History Tobacco Use Types Packs/Day Years [...] on file documented as of this encounter Functional Status documented as of this encounter Plan of Treatment Upcoming Encounters Date Type Department Care Team (Late st Contact Info) Description 01/14/2025 7:30 AM EDT Office Visit [facility] [address] [facility] [address] [place] [phone] Elissa Rick, OCC THER [address] [facility] [address] [place] [address] documented as of this encounter Visit Diagnoses Not on filedocumented in this encounter Care Teams Environmental Change Analyst Relationship Specialty Start Date End Date Maximo Cash MD [address] [facility] [address] [place] [address] PCP - General Internal Medicine 09/16/18 documented as of this encounter
--- OUTSIDE RECORDS SUMMARY | 2024-12-17 08:00 | XMS_ITS | Encounter Summary ---
Author Organization [facility] Address [address] [place] [address] Care Team Providers Care Stewardess Supervisor Name Role Phone Maximo Cash MD Primary Care Provider [phone] Encounter Details Date Type Department Care Team (Late st Contact Info) Description 12/17/2024 8:00 AM EDT Office Visit [facility] [address] [facility] [address] [place] [address] Elissa Rick, STAMPS [employer] COINS SALESPERSON [address] [facility] [address] [place], [place] [id number] Lumbar stenosis with neurogenic claudication; Scoliosis of thoracolumbar spine, unspecified scoliosis type; Myofascial pain; Generalized anxiety disorder Social History [...] - Inhaled Oxygen Concentration - - Weight 62.1 kg (137 lb) 12/17/2024 7:38 AM EDT Height 172.7 cm (5' 7.99 ) 12/17/2024 7:38 AM ED T Body Mass Index 20.84 12/17/2024 7:38 AM EDT documented in this encounter Progress Notes * Elissa Rick, STAMPS OR COINS SALESPERSON - 12/17/2024 8:00 AM EDT Chief Complaint: Right lower extremity pain. History of Present Illness: Patient: Ms. Karolina Montenegro, 74 y.o. female was originally referred by Dr Simone Green, in consultation for chronic intractable abdominal pain. Patient reports a longstanding history of chronic abdominal pain. She is a former patient seen in 2019 for chronic abdominal pain. She also requested to be evaluated for her lower back pain. She also has a history of esophageal spasms r esponsive to Cardizem. MRCP revealed no evidence of choledocholithiasis. She underwent follow up consultation with Dr. Simone Green on 05/23/2023. Per Dr. Green, a recent CAT scan of the abdomen and pelvis with and without contrast on 05/11/2023 was unrevealing. She is up-to-date on her colon cancer screening having had a colonoscopy on 05/24/2022 that was unremarkable exceptfor diverticulosis in the sigmoid colon and descending colon. Two 6 mm polyps in the transverse colon and descending colon were removed. On the same occasion, she underwent EGD and was found to have an esophageal stricture which was dilated. She is still experiencing mild dysphagia to solids. She has also been diagnosed with gastroparesis. Pain is mostly localized in the left upper quadrant with some radiation into the lumbar region and into the left hip. She has failed to obtain pain relief with conservative measures for the past years including oral analgesics, topical analgesics, ice, heat, independent exercise program (ongoing), to name a few. In regards to her lower back pain, MRI of the lumbar spine on 08/19/2023 revealed advanced degenerative changes with levoscoliosis, L2-L3, thereis a disc osteophyte complex formation with moderate central spinal stenosis and moderate right with mild left foraminal stenosis. At L3-L4 there is severe central spinal stenosis with moderate foraminal stenosis. At L4-L5 there is moderate to severe left foraminal stenosis. On 04/21/2024, she underwent a diagnostic and therapeutic left L3-L4 and left L4-L5 transforaminal epidural steroid injection, from which I last evaluated her she reported about 80% pain relief and functional improvement lasting almost 4 to 5 months of her left lower extremity pain. She had canceled several follow-ups with me, due to [...] which had to be drained by an business control specialist. She additionally had to be placed on antibiotics due to infection. Recently, on 11/12/2024 she was evaluated in theemergency department again due to severe back pain. She reported low back pain with radiation into her right lower extremity. She reports onset of the new right lower extremity pain, only over about the past 6 weeks. When I last saw her, her pain was quite severe, she presented in a wheelchair and was unable to bear weight. New MRI of the lumbar spine without contrast was obtained at the emergency department, this revealed once again levoscoliosis of the lumbar spine, with advanced degenerativedisc disease. At L2-L3 there is a disc [...] central spinal stenosis. Moderate to severe right neuroforaminalstenosis with probable contact [...] disc bulge with osteophyte formations with facet hypertrophywith mild central spinal stenosis mild to moderate lateral recess stenosis, and moderate left and mild to moderate right neuroforaminal stenosis. Due to the severity of her pain, we sent her same dayon 11/19/2024, and she underwent a diagnostic and therapeutic right L3-L4 and right L4-L5 transforaminal epidural steroid injection. Today she tells me this provided her with ongoing 60% pain relief. She is no longer in a wheelchair, or using assistive devices for ambulation. She returns today for postprocedure follow-up and evaluation. Pain Description: Constant low-grade lower back and lower extremity pain with intermittent exacerbation, described as aching, dull, sharp, and numbness, throbbing sensation. Radiation of Pain: The pain no longer persistently radiates into the right hip, right gluteal region, into the right thigh, calf and right foot associated with numbness Pain intensity today: 6/10 Average pain intensity last week: 4/10 Pain intensity ranges from: 3/10 to 7/10 Aggravating factors: Pain increases with movement, bending, extension, twisting, protracted sitting, standing, walking. Patient describes neurogenic claudication. Patient is in a wheelchair today. Alleviating factors: Pain decreases with lying down, changing positions, moving away from the site of pain Associated Symptoms: Patient reports that the pain, numbness and weakness in the lower extremitie is improved. Patient denies any new bladder or bowel [...] and left L4-L5 transforaminal epidural steroid injection 11/19/2024: DxTx right L3-L4 and right L4-L5 transforaminal epidural steroid injections. Surgical Measures: History of abdominal surgeries: Appendectomy; cholecystectomy; hysterectomy; Tubal ligation. No history of lumbar spine or hip surgery. Karolina Montenegro presents with significant comorbidities including [...] 9 18 GPS Total: 42 57 The [place] Back Pain Disability Scale DATE 06-05 Sleep [...] 5 Total score 79 63 Review of Diagnostic Studies: MRI of the lumbar spine [...] of high-grade central spinal stenosis. Review of Systems Constitutional: Positive for activity [...] tablet by mouth Daily., Disp: , Rfl: levothyroxine (SYNTHROID, LEVOTHROID) 112 MCG tablet, Take 1 tablet by mouth Daily., Disp: , Rfl: omeprazole (priLOSEC) 40 MG capsule, TAKE 1 CAPSULE BY MOUTH TWICE DAILY BEFORE MEALS, Disp: 180 capsule, Rfl: 3 ondansetron ODT (ZOFRAN-ODT) 4 MG dis[address] tablet, Place 1 tablet on the tongue Every 8 (Eight) Hours As Needed for Nausea or Vomiting., Disp: 30 tablet, Rfl: 0 ondansetron ODT (ZOFRAN-ODT) 8 MG disintegrating tablet, Place 1 tablet on the tongue Every 8 (Eight) Hours As Needed for Nausea or Vomiting., Disp: 2 tablet, Rfl: 0 oxyCODONE-acetaminophen (PERCOCET) 5-325 MG per tablet, Take 1 tablet by mouth Every 6 (Six) Hours As Needed for Moderate Pain. (Patient taking differently: Take 1 tablet by mouth Every 6 (Six) HoursAs Needed for Moderate Pain. Taking 0.5 a tablet), Disp: 45 tablet, Rfl: 0 promethazine (PHENERGAN) 25 MG tablet, Take 1 tablet by mouth Every 6 (Six) Hours As Needed for Nausea., Disp: 45 tablet, Rfl: 0 Gel Base gel, prilocaine 2% lidocaine 10% imipramine 3% capsaicin 0.001% mannitol 20%, 1 to 2 gramsof cream to the affected areas Q4-6PRN (Patient not taking: Reported on 12/17/2024), Disp: 240 g, Rfl: 5 Allergies Allergen Reactions Hydromorphone Unknown - Low Severity Latex Hives and Rash Other Hives and Rash Stagesic Ht 172.7 cm (67.99 ) Wt 62.1 kg (137 lb) BMI 20.84 kg/m?? Physical Exam: Constitutional: Patient appears well-developed, well-nourished, well-hydrated, appears younger thanstated age HEENT: Head: Normocephalic and atraumatic Eyes: Conjunctivae and lids are normal Pupils: Equal, round, reactive to light Musculoskeletal Gait and station: Gait evaluation demonstrated shuffling Lumbar Spine: Passive and active range of [...] tract signs: Negative. Straight leg raising test: Negative today Sensory exam: Intact to light touch, intact pain and temperature sensation, intact vibration sensation and normal proprioception Coordination: Finger to nose: Normal. Balance: Normal Romberg's sign:Negative Skin and subcutaneous tissue: Skin is warm and intact. No rash noted. No cyanosis. Psychiatric: Judgment and insight: Normal. Recent and remote memory: Intact. Mood and affect: Normal. ASSESSMENT: 1. Lumbar stenosis with neurogenic claudication 2. Scoliosis of thoracolumbar spine, unspecified scoliosis type 3. Myofascial pain 4. Generalized anxiety disorder PLAN/MEDICAL DECISION MAKING: Ms. Karolina Montenegro, 74 y.o. female originally referred by Dr Simone Green, in consultation [...] of choledocholithiasis. She underwent follow up consultation with Dr. Simone Green on 05/23/2023. Per Dr. Green,a recent CAT scan of the abdomen and [...] was dilated. She is still experiencing mild dysphagiato solids.she has also been diagnosed with gastroparesis. Pain is mostly localized in the left upper quadrant with some radiation into the lumbar region and into the left hip. Sshe has failed to obtain pain relief with conservative measures for the past years including oral analgesics, topical analgesics, ice, heat, independent exercise program (ongoing), to name a few. In regards to her lower back pain. MRI of the lumbar spine on 08/19/2023 revealed advanced generative changes with levoscoliosis, L2-L3, there is a disc osteophyte complex formation with moderate central spinal stenosis and moderate right with mild left foraminal stenosis. At L3-L4 there is severe central spinal stenosis withmoderate foraminal stenosis. At L4-L5 there is moderate to severe left foraminal stenosis. For her left lower extremity pain, on 04/21/2024, she underwent a diagnostic and therapeutic left L3-L4 and left L4-L5 transforaminal epidural steroid injection, that provided her with about 80% relief of herleft leg pain. She had canceled several follow-ups with me, due to [...] foot, she experienced a hematoma, which had sharri drained by an orthopedic. She additionally had to be placed on antibiotics due to infection. Recently, on 11/12/2024 she was evaluated in the emergency department again due to severe back pain. Shereported low back pain with radiation into her [...] L3-L4 there is a disc bulge with osteophyteformations with facet hypertrophy and ligamentum flavum thickening [...] and mild to moderate right neuroforaminal stenosis. Today, she is much better than when I last saw her in office. Since epidural injection, her symptoms are muchimproved. She is no longer walking with assistance. I am going to have her follow-up with me in abou t 4 weeks to keep an update on her ongoing progress. I had a lengthy conversation with . Karolina Montenegro regarding her chronic pain condition [...] the standard of care. The duration and fr equency proposed are considered appropriate for the service [...] entrapment neuropathy of the abdomen: Karolina Montenegro could be scheduled for therapeutic left 9th and 10th intercostal nerve blocks by anterior approach by hydrodissection technique under ultrasound and PNS guidance if pain recurs. It has also been discussed prospects of a peripheral nerve stimulator with [employer] dual-lead system B. Chronic Lower Back Pain/LSS: None indicated at this time. Follow-up in 4 weeks. If symptoms return prior, we may proceed with right versus left depending on the distribution of her pain transforaminal epidural steroid injections. We may repeat epidural depend on patient's outcome. Other options include diagnostic lumbar medial branch [...] the plan and agrees to proceed accordingly. She was prescribed a controlled substance at last office visit, this was a temporary and one-time prescription if further prescriptions will be ordered, she will sign a controlled substance agreementand UDS will be obtained at that encounter. Pain Medications aspirin 81 MG EC tablet Take 1 tablet by mouth Daily. oxyCODONE-acetaminophen (PERCOCET) 5-325 MG per tablet Take 1 tablet by mouth Every 6 (Six) Hours As Needed for Moderate Pain. No orders of the defined types were placed in this encounter. Please note that portions of this note were completed with a voice recognition program. Any copied data in any portion of my note has been reviewed by myself and accurate. The Century Cures Act makes medical notes like this [...] defined types were placed in this encounter. Future Appointments Date Time Provider Department Scott 01/14/2025 7:30 AM Elissa Rick APRN [facility] documented in this encounter Plan of Treatment Upcoming Encounters Date Type Department Care Team (Late st Contact Info) Description 01/14/2025 7:30 AM EDT Office Visit [facility] [address] [facility] [address] [place] [phone] Elissa Rick, STAMPS OR COINS SALESPERSON [address] [facility] [address] [place] [address] documented as of this encounter Visit Diagnoses Diagnosis Lumbar stenosis with neurogenic claudication Scoliosis of thoracolumbar spine, unspecified scoliosis type Myofascial pain Unspecified myalgia and myositis Generalized anxiety disorder documented in this encounter Care Teams Stewardess Supervisor Relationship Specialty Start Date End Date Maximo Cash MD [address] [facility] [address] [place] [address] PCP - General Internal Medicine 09/16/18 documented as of this encounter
[2025-01-01 15:35] LABS: Hematocrit 45.8 % (37.0-47.0); Hemoglobin 14.4 g/dL (12.2-16.2); Immature Granulocytes % 0.4 %; Mean Corpuscular HGB Conc 31.4 g/dL (31.8-35.4); Mean Corpuscular Hemoglobin 27.3 pg (27.0-31.2); Mean Corpuscular Volume 86.7 fl (81-99); Nucleated Red Blood Cells % 0 %; Platelet Count 481 K/mm3 (142-424); Red Blood Count 5.28 M/mm3 (4.20-5.40); Red Cell Distribution Width-SD 43.8 fL; White Blood Count 7.1 K/mm3 (4.8-10.8)
[2025-01-01 20:19] LABS: Alanine Aminotransferase 11 U/L (12-78); Albumin Level 5.0 g/dl (3.5-5.0); Albumin/Globulin Ratio 2.1 (1.1-1.8); Alkaline Phosphatase 85 U/L (38-126); Anion Gap 20.7 mEq/L (5-15); Aspartate Amino Transferase 25 U/L (14-36); Bilirubin,Total 1.1 mg/dl (0.2-1.3); Blood Urea Nitrogen 10 mg/dl (7-17); Calcium 9.8 mg/dl (8.4-10.2); Carbon Dioxide 22 mmol/L (22.0-30.0); Chloride 99 mmol/L (98-107); Cholesterol 227 mg/dl (140-200); Creatinine,Serum 0.60 mg/dl (0.52-1.04); Estimated Glomerular Filt Rate 98 ml/min (>60); GFR (African American) 118 ML/MIN (>60); Globulin 2.4 g/dL (1.3-3.2); Glucose 83 mg/dl (74-100); HDL Cholesterol 77 mg/dl (40-60); Potassium 4.7 mmoL/L (3.5-5.1); Sodium 137 mmol/L (136-145); Total Protein,Serum 7.4 g/dl (6.3-8.2); Triglycerides 110 mg/dl (30-150)
[2025-01-01 23:34] LABS: Thyroid Stimulating Hormone 0.49 uIU/mL (0.465-4.68)
--- OUTSIDE RECORDS SUMMARY | 2025-01-02 10:37 | XMS_ITS | Clinical Summary ---
Author Organization [facility] Address [address] [place] [address] Care Team Providers Care Livestock Inspector Name Role Phone Maximo Cash MD Primary Care Provider [phone] Allergies Active Allergy Reactions Criticality Noted Date Comments Hydromorphone Unknown - Low Severity 05/23/2023 Latex Hives,Rash Low 09/16/2018 Other Hives,Rash Low 09/16/2018 Stagesic Medications diazePAM (VALIUM) 5 MG tablet TAKE 1 TABLET TWICE A DAY NEEDED FOR NERVES 0 09/09/19 19 Active diltiaZEM (CARDIZEM) 30 MG tablet Take 1 tablet by mouth 3 (Three) Times a Day. 0 08/30/19 19 Active aspirin 81 MG EC tablet Take 1 tablet by mouth Daily. Active ondansetron ODT (ZOFRAN-ODT) [address] 1 tablet on the tongue Every 8 (Eight) Hours As Needed for Nausea or Vomiting. 2 tablet 05/16/19 23 Active lactulose (CHRONULAC) 10 GM/15ML solution As Needed. 05/02/19 24 Active levothyroxine (SYNTHROID, LEVOTHROID) 100 MCG tablet Take 1 tablet by mouth Daily. 06/04/19 24 Active Gel Base gel prilocaine 2% lidocaine 10% imipramine 3% capsaicin 0.001% mannitol 20%, 1 to 2 grams of cream to the affected areas Q4-6PRN 240 g 5 06/06/19 24 Active Additional Information Patient not taking.Reported on 12/17/2024 Dietary Management Product (Rheumate) capsule Take 1 capsule by mouth Daily. 90 capsule 06/06/19 24 Active omeprazole (priLOSEC) 40 MG capsule TAKE 1 CAPSULE BY MOUTH TWICE DAILY BEFORE MEALS 180 capsule 3 04/10/20 24 Active levothyroxine (SYNTHROID, LEVOTHROID) 112 MCG tablet Take 1 tablet by mouth Daily. 10/29/19 25 Active promethazine (PHENERGAN) 25 MG tablet Take 1 tablet by mouth Every 6 (Six) Hours As Needed for Nausea. 45 tablet 11/20/19 25 Active oxyCODONE-acetamin ophen (PERCOCET) 5-325 MG per tabletIndications: Lumbar stenosis with neurogenic claudication Take 1 tablet by mouth Every 6 (Six) Hours As Needed for Moderate Pain. 45 tablet 11/20/19 25 Active Additional Information Patient taking differently:1 tablet Oral Every 6 Hours PRN, Moderate Pain,Taking 0.5 a tablet, Reported on 12/17/2024 ondansetron ODT (ZOFRAN-ODT) [address] 1 tablet on the tongue Every 8 (Eight) Hours As Needed for Nausea or Vomiting. 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 06/04/2023 Esophageal dysphagia 05/24/2023 Esophageal stricture 05/24/2023 History of adenomatous polyp of colon 05/24/2023 Spondylosis of lumbar region without myelopathy or radiculopathy 02/10/2020 Generalized anxiety disorder 02/10/2020 Chronic abdominal pain 02/10/2020 Lumbar stenosis with neurogenic claudication Myofascial pain 02/03/2020 Gastroparesis 01/09/2020 Trigger point of abdomen 01/09/2020 Left upper quadrant pain 04/09/2019 Abnormal weight loss 04/09/2019 Abdominal bloating 09/18/2018 Atypical chest pain 09/18/2018 Esophageal spasm 09/18/2018 Globus syndrome 09/18/2018 Visceral hypersensitivity syndrome 09/18/2018 Hx of adenomatous polyp of colon 09/18/2018 Encounters Date Type Department Care Team Description 12/17/2024 8:00 AM EDT Office Visit [facility] [address] [address] Elissa Rick, NEONATAL NURSE PRACTITIONER Lumbar stenosis with neurogenic claudication; Scoliosis of thoracolumbar spine, unspecified scoliosis type; Myofascial pain; Generalized anxiety disorder 12/17/2024 Travel 11/19/2024 12:00 PM EDT Outside Facility Service [facility] [address] [facility] [address] [place] [address] Juan Linares MD 11/19/2024 8:00 AM EDT Office Visit [facility] [address] [facility] [address] [place] [address] Elissa Rick, NEONATAL NURSE PRACTITIONER Lumbar stenosis with neurogenic claudication; Degeneration of intervertebral disc of lumbar region with discogenic back pain and lower extremity pain; Scoliosis of thoracolumbar spine, unspecified scoliosis type; Spondylosis of lumbar region without myelopathy or radiculopathy; Myofascial pain; Generalized anxiety disorder 11/19/2024 Documentation [facility] [address] [facility] [address] [place] [address] Juan Linares MD 11/19/2024 Travel 11/13/2024 Telephone [facility] [address] [facility] [address] [place] [address] VASCELLO: PATIENT CALL x 2 re APPT, PAIN POST ER VISIT 11/12/2024 11:53 AM EDT - 11/12/2024 3:30 PM EDT Emergency [facility]PART[facility] [place] [address] [facility] [address] [place] [address] Carlos Griffin MD Spinal stenosis of lumbar region, unspecified whether neurogenic claudication present (Primary Dx); Chronic midline low back pain with right-sided sciatica; Degeneration of intervertebral disc of lumbar region with discogenic back pain Discharge Disposition: Home or Self Care 11/12/2024 Travel 11/11/2024 Telephone [facility] [address] [facility] [address] [place] [address]VASCELLO- MEDICAL CONCERN from Last 3 Months Family History Medical History Relation Name Comments Diabetes Mother Colon cancer Neg Hx Colon polyps Neg Hx Relation Name Status Comments Mother Social History Tobacco Use Types Packs/Day Years Used Date Smoking Tobacco: Never Passive Smoke Exposure: Never Smokeless Tobacco: Never Tobacco Cessation:Counseling Given: Not Answered Alcohol Use Standard Drinks/Week Comments No 0 [...] on file Sexual Orientation Not on file Last Filed Vital Signs Vital Sign Reading Time Taken Comments Blood Pressure 153/84 11/12/2024 12:00 PM EDT Pulse 65 11/12/2024 1:00 PM EDT Temperature 36.7 C (98 F) 11/12/2024 11:57 AM EDT Respiratory Rate 20 11/12/2024 11:57 AM EDT Oxygen Saturation 100% 11/12/2024 1:00 PM EDT Inhaled Oxygen Concentration - - Weight 62.1 kg (137 lb) 12/17/2024 7:38 AM EDT Height 172.7 cm (5' 7.99 ) 12/17/2024 7:38 AM ED T Body Mass Index 20.84 12/17/2024 7:38 AM EDT Plan of Treatment Upcoming Encounters Date Type Department Care Team (Late st Contact Info) Description 01/14/2025 7:30 AM EDT Office Visit [facility] [address] [facility] [address] [place] [address] Elissa Rick, NEONATAL NURSE PRACTITIONER [address] [facility] [address] [place] [address] Health Maintenance Due Date Last Done Comments DXA SCAN 1950 Pneumococcal Vaccine 50+ (1 of 2 - PCV) 1969 MAMMOGRAM 1990 COLOGUARD 1995 COLON CANCER SCREENING 5 YEA R SIGMOIDOSCOPY 1995 CT COLONOGRAPHY 1995 FECAL OCCULT BLOOD TEST 1995 FIT Testing (1 year) 1995 ZOSTER VACCINE (1 of 2) 2000 TDAP/TD VACCINES (2 - Tdap) 07/04/2006 07/04/1996 ANNUAL WELLNESS VISIT 07/23/2018 HEPATITIS C SCREENING 07/23/2018 COVID-19 Vaccine (5 - 2024-2 6 season) 2024 03/01/2022, 11/15/2021, 03/02/2021, Additional history exists INFLUENZA VACCINE 01/28/2025 02/04/2024 COLONOSCOPY 05/24/2025 05/24/2022, 09/15/2018 COLORECTAL CANCER SCREENING 05/24/2025 Procedures Procedure Name Priority Date/Time Associated Diagnosis Comments MRI LUMBAR SPINE WO CONTRAST STAT 11/12/2024 2:05 PM EDT SCANNED - COLONOSCOPY 05/24/2022 from Last 3 Months or Most Recently Relevant to Health Maintenance Results * MRI Lumbar Spine Without Contrast [...] MD 11/12/2024 2:16 PM EDT Workstation ID: [id number] Narrative 11/12/2024 2:16 PM EDT MRI LUMBAR [...] at potential contact of the exiting right [id number]. L3-L4: Circumferential disc bulge and endplate osteophyte [...] MD 11/12/2024 2:16 PM EDT Workstation ID: [id number] us Ela Betancourt PA-C IMG MRI ORDERABLES Final R esult * SCANNED - COLONOSCOPY (05/24/2022) Simone Green MD CHART REVIEW T ABS Final Result from Last 3 Months or Most Recently Relevant to Health Maintenance Insurance [facility] Medicare Advant[place] [address] Advance Directives Documents on File Type Date Recorded Patient Reservoir Engineering Consultant Expl anation LIVING WILL - SCAN 12/13/2021 10:18 AM [facility] [facility] [place] Care Teams Livestock Inspector Relationship Specialty Start Date End Date Maximo Cash MD [address] [place] [facility] [address] [place] [address] PCP - General Internal Medicine 09/16/18
--- OUTSIDE RECORDS SUMMARY | 2025-01-02 10:37 | XMS_ITS | Encounter Summary ---
Author Organization [facility] Address [address] [place] [address] Care Team Providers Care Consulting Project Director Name Role Phone Maximo Cash MD Primary Care Provider Reason for Visit * Reason Onset Date Comments - MEDICAL CONCERN 11/11/2024 Encounter Details Date Type Department Care Team (Late st Contact Info) Description 11/11/2024 Telephone [facility] [address] [address] Juan Conner MD [address] [facility] [address] [place] [address] - MEDICAL CONCERN Social History Tobacco Use Types Packs/Day Years [...] on file documented as of this encounter Miscellaneous Notes * Telephone Encounter - Kelechi Calero RN - 11/11/2024 11:10 AM EDT Spoke with patient she describes her pain greater then 10 radiating from rt lower back into rt leg.Pt denies about recently falls or trauma. Pt states she going to [facility] ER * Telephone Encounter - Keke Mariee RegSched Rep - 11/11/2024 10:30 AM EDT Delete after reviewing: Send to the appropriate pool. Check your call action grid or workflows. Caller: Karolina Montenegro Relationship: SELF Best call back number: [phone] What is your medical concern? SPOKE WITH PT- SHE STATES THAT SHE WAS IN THE [facility] ED ALL DAY ON YESTERDAY PT STATES THAT SHE IS IN A LOT OF PAIN AND WOULD LIKE TO SEE IF SHE CAN GET IN TO SEE DR. CONNER EMELIA PT STATES THAT SHE HAS SHOOTING PAINS RUNNING DOWN HER RIGHT SIDE- 1ST AVAIL FOR DR. CONNER IS 7.29.25- PT STATES THAT SHE CANNOT WAIT THAT LONG AND IS ASKING IF SHE NEEDS TO GO TO THE ED PLEASE CONTACT PT AND ADVISE documented in this encounter Plan of Treatment Upcoming Encounters Date Type Department Care Team (Late st Contact Info) Description 01/14/2025 7:30 AM EDT Office Visit [facility] [address] [facility] [address] [place] [address] Elissa Rick, AIRPORT RAMP AGENT [address] [place] [address] documented as of this encounter Visit Diagnoses Not on filedocumented in this encounter Care Teams Consulting Project Director Relationship Specialty Start Date End Date Maximo Cash MD [address] [place] [address] [place] [address] PCP - General Internal Medicine 09/16/18 documented as of this encounter
--- OUTSIDE RECORDS SUMMARY | 2025-01-02 10:37 | XMS_ITS | Encounter Summary ---
Author Organization [facility] Address [address] [place] [address] Care Team Providers Care Orthopedic Cast Specialist Name Role Phone Maximo Cash MD Primary Care Provider [phone] Encounter Details Date Type Department Care Team (Latest Contact Info) Description 12/17/2024 Travel Social History Tobacco Use Types Packs/Day Years [...] on file documented as of this encounter Plan of Treatment Upcoming Encounters Date Type Department Care Team (Late st Contact Info) Description 01/14/2025 7:30 AM EDT Office Visit [facility] [address] [facility] [address] [place] [address] Elissa Rick, ELEMENTARY SPANISH TEACHER [address] [facility] [address] [place] [address] documented as of this encounter Visit Diagnoses Not on filedocumented in this encounter Care Teams Orthopedic Cast Specialist Relationship Specialty Start Date End Date Maximo Cash MD [address] [address] [address] [place] [address] PCP - General Internal Medicine 09/16/18 documented as of this encounter
--- OUTSIDE RECORDS SUMMARY | 2025-01-02 10:37 | XMS_ITS | Patient Health Record ---
Author Organization [facility] Address [address] [facility] [address] [place] [address] Care Team Providers Care Crossing Supervisor Name Role Phone Matt Mclean Unavailable [phone] Shailesh STRAUSS MD, Maximo Unavailable Unavailable Allergies Allergen (clinical drug ingredient) Drug/Non Drug Allergy documented on EMR Reaction Allergy Type Onset Date Status hydromorphone Dilaudid Unknown Drug Allergy Act dada Stagesic Unknown Drug Allergy Active Reason For Referral No Information Medications Medication SIG (Take, Route, Frequency, Duration) Notes Start Date End Date Status Flonase 50 MCG/ACT 2 spray in each nostril Nasally Once a day; Duration: 30 day(s) 07/18/2021 Active methylPREDNISolone 16 MG 1 tablet in the morning with food or milk Orally Once a day Active Promethazine HCl 25 MG Oral; Duration: 6 Days Active Lactulose 10 GM/15ML TAKE 10 TO 15 ML BY MOUTH TWICE DAILY FOR 15 DAYS Oral; Duration: 15 Days Active Pred-G 0.3-1 % 4 gtts lt ear otic three times a day; Duration: 10 days 08/03/2022 Active Ventolin HFA 108 (90 Base) MCG/ACT 2 puffs as needed Inhalation every 4 hrs prn; Duration: 30 days 10/15/2023 Active Albuterol Sulfate HFA 108 (9 0 Base) MCG/ACT INHALE 2 PUFFS BY MOUTH EVERY 4 HOURS NEEDED Inhalation; Duration: 16 Days Active dilTIAZem HCl 25 MG/5ML as directed Intravenous Active Ciprodex 0.3-0.1 % 4 drops into affecte d ear Otic Twice a day; Duration: 10 days 09/28/2023 Active Omeprazole 10 MG 1 capsule 30 minutes before morning meal Orally Once a day Active Levothyroxine Sodium 25 MCG 1 tablet in the morning on an empty stomach Orally Once a day Active diazePAM 2.5 MG as directed Rectal Active Social History Tobacco Use: Social History Observation Description Date Details (start date - stop date) Never Smoker NA - NA Smoking Question Answer Notes Do you Smoke ? no Problems Problem Type SNOMED Code ICD Code Onset Dates Problem Status W/U Status Risk Notes Problem Nasal obstruction (877713730) Nasal obstruction (J34.89) Active confirmed Problem Hypertrophy of nasal turbinates (51025936) Hypertrophy of inferior nasal turbinate (J34.3) Active confirmed Problem Recurrent acute sinusitis (291060039) Other acute recurrent sinusitis (J01.81) Active confirmed Problem Mild intermittent asthma (023561478) Mild intermittent asthma without complication (J45.20) Active confirmed Problem Bilateral tinnitus (2110357436450) Tinnitus of both ears (H93.13) Active confirmed Problem Otorrhea of left ear (411159681630298 8) Otorrhea of left ear (H92.12) Active confirmed Problem Other chronic nonsuppurative otitis media of both ears (H65.493) Active confirmed Problem Otorrhea of both ears (870711034278736 5) Otorrhea of both ears (H92.13) Active confirmed Problem Infective otitis externa (50860382) Other infective acute otitis externa of right ear (H60.391) Active confirmed Problem Allergic rhinitis (02208325) Seasonal allergic rhinitis due to other allergic trigger (J30.89) Active confirmed Problem Pulsatile tinnitus (342496376) Pulsatile tinnitus (H93.A9) Active confirmed Problem Bilateral hearing loss (37953900) Other specified hearing loss of both ears (H91.8X3) Active confirmed Problem Dysfunction of left eustachian tube (006041005779952 6) Dysfunction of left eustachian tube (H69.82) Active confirmed Problem Occlusion and stenosis of multiple and bilateral cerebral arteries (256799098) Bilateral carotid artery stenosis (I65.23) Active confirmed Problem Dysfunction of both eustachian tubes (092468451410694 0) Dysfunction of both eustachian tubes (H69.93) Active confirmed Problem Disease caused by Severe acute respiratory syndrome coronavirus 2 (disorder) (752358183) COVID (U07.1) Active confirmed Vital Signs Heart Rate 68 /min 02/11/2024 Temperature 97.2 degrees Fahrenheit 02/11/2024 Oximetry 96 % 02/11/2024 Blood pressure diastolic 71 mm Hg 02/11/2024 Height 65 in 02/11/2024 Blood pressure systolic 141 mm Hg 02/11/2024 Weight 141.8 lbs 02/11/2024 BMI 23.59 kg/m2 02/11/2024 Encounters Encounter Location Date Provider Diagnosis CARMEN MCLEAN MD / ENT [address] [place] [address] 01/07/2024 Matt Mclean Other chronic nonsuppurative otitis media of both ears H65.493 ; Other specified hearing loss of both ears H91.8X3 ; Tinnitus of both ears H93.13 ; Other acute recurrent sinusitis J01.81 ; Nasal obstruction J34.89 ; Hypertrophy of inferior nasal turbinate J34.3 ; Seasonal allergic rhinitis due to other allergic trigger J30.89 ; Dysfunction of left eustachian tube H69.82 ; Other infective acute otitis externa of right ear H60.391 ; Otorrhea of left ear H92.12 ; Otorrhea of both ears H92.13 ; Pulsatile tinnitus H93.A9 ; Bilateral carotid artery stenosis I65.23 ; COVID U07.1 ; Mild intermittent asthma without complication J45.20 and Dysfunction of both eustachian tubes H69.93 CARMEN MCLEAN MD / ENT [address] [place] [address] 02/11/2024 Matt Mclean Other chronic nonsuppurative otitis media of both ears H65.493 ; Other specified hearing loss of both ears H91.8X3 ; Tinnitus of both ears H93.13 ; Other acute recurrent sinusitis J01.81 ; Nasal obstruction J34.89 ; Hypertrophy of inferior nasal turbinate J34.3 ; Seasonal allergic rhinitis due to other allergic trigger J30.89 ; Dysfunction of left eustachian tube H69.82 ; Other infective acute otitis externa of right ear H60.391 ; Otorrhea of left ear H92.12 ; Otorrhea of both ears H92.13 ; Pulsatile tinnitus H93.A9 ; Bilateral carotid artery stenosis I65.23 ; COVID U07.1 ; Mild intermittent asthma without complication J45.20 and Dysfunction of both eustachian tubes H69.93 [facility] MD [address] [place] [address] [address] [place] [address] 01/07/2024 Matt Mclean Assessments Encounter Date Diagnosis (ICD Code) Assessment Notes Treatment Notes Treatment Clinical Notes Section Notes 01/07/2024 Other chronic nonsuppurative otitis media of both ears (ICD-10 - H65.493) status post replacement of T tubes with improved symptoms. 02/11/2024 Other chronic nonsuppurative otitis media of both ears (ICD-10 - H65.493) T tubes in place. There is some wax around the right tube and placing her on drops. 01/07/2024 Other specified hearing loss of both ears (ICD-10 - H91.8X3) protect the ears from noise exposure. 02/11/2024 Other specified hearing loss of both ears (ICD-10 - H91.8X3) no change in hearing. Protect the ears from noise exposure. 01/07/2024 Tinnitus of both ears (ICD-10 - H93.13) I've discussed tinnitus masking with background noise such as a fan or radio, available sound makers that make ocean and water noise sounds, et cetera. 02/11/2024 Tinnitus of both ears (ICD-10 - H93.13) I've discussed tinnitus masking with background noise such as a fan or radio, available sound makers that make ocean and water noise sounds, et cetera. 02/11/2024 Other acute recurrent sinusitis (ICD-10 - J01.81) 01/07/2024 Other acute recurrent sinusitis (ICD-10 - J01.81) CT scan was negative. Return with acute changes. 01/07/2024 Nasal obstruction (ICD-10 - J34.89) 02/11/2024 Nasal obstruction (ICD-10 - J34.89) continue nasal sprays. 02/11/2024 Hypertrophy of inferior nasal turbinate (ICD-10 - J34.3) 01/07/2024 Hypertrophy of inferior nasal turbinate (ICD-10 - J34.3) 01/07/2024 Seasonal allergic rhinitis due to other allergic trigger (ICD-10 - J30.89) 02/11/2024 Seasonal allergic rhinitis due to other allergic trigger (ICD-10 - J30.89) 02/11/2024 Dysfunction of left eustachian tube (ICD-10 - H69.82) 01/07/2024 Dysfunction of left eustachian tube (ICD-10 - H69.82) 01/07/2024 Other infective acute otitis externa of right ear (ICD-10 - H60.391) 02/11/2024 Other infective acute otitis externa of right ear (ICD-10 - H60.391) 02/11/2024 Otorrhea of left ear (ICD-10 - H92.12) no current otorrhea. 01/07/2024 Otorrhea of left ear (ICD-10 - H92.12) 01/07/2024 Otorrhea of both ears (ICD-10 - H92.13) 02/11/2024 Otorrhea of both ears (ICD-10 - H92.13) 01/07/2024 Pulsatile tinnitus (ICD-10 - H93.A9) 02/11/2024 Pulsatile tinnitus (ICD-10 - H93.A9) 02/11/2024 Bilateral carotid artery stenosis (ICD-10 - I65.23) 01/07/2024 Bilateral carotid artery stenosis (ICD-10 - I65.23) 01/07/2024 COVID (ICD-10 - U07.1) 02/11/2024 COVID (ICD-10 - U07.1) 02/11/2024 Mild intermittent asthma without complication (ICD-10 - J45.20) 01/07/2024 Mild intermittent asthma without complication (ICD-10 - J45.20) 01/07/2024 Dysfunction of both eustachian tubes (ICD-10 - H69.93) symptoms of eustachian tube dysfunction improved with T-tube replacement. 02/11/2024 Dysfunction of both eustachian tubes (ICD-10 - H69.93) 01/07/2024 Other Please note that portions of this note were completed with a voice recognition program. Efforts were made to edit the dictations, but occasionally words are mistranscribed.* * 02/11/2024 Other Please note that portions of this note were completed with a voice recognition program. Efforts were made to edit the dictations, but occasionally words are mistranscribed.* * Plan Of Treatment No Information Insurance Providers Payer Name Payer Address Payer Phone Subscriber Number Group Number Insured Name Patient Relationship to Insured Coverage Start Date Coverage End Date [employer] [address] [address] [place] [address] [id number] Karolina Montenegro Self - patient is the insured Medical (General) History Medical History History ICD Code Thyroid Disease Yes hypertension No asthma No Diabetes No Diabetes Insulin Dependent No Heart Disease No Cancer No Lung Disease No kidney stones No Thyroid Disease Yes hypertension No asthma No Diabetes No Diabetes Insulin Dependent No Heart Disease No Cancer No Lung Disease No kidney stones No Surgical History Surgery Date(Month/Year) tonsillectomy adenoidectomy Ear Abdominal [employer] Nasal/Sinus Hospitalization History Reason Date(Month/Year)
--- OUTSIDE RECORDS SUMMARY | 2025-01-02 10:37 | XMS_ITS | Encounter Summary ---
Author Organization [facility] Address [address] [place] [address] Care Team Providers Care Automation Engineer Name Role Phone Maximo Cash MD Primary Care Provider [phone] Encounter Details Date Type Department Care Team (Latest Contact Info) Description 11/12/2024 Travel Social History Tobacco Use Types Packs/Day [...] documented as of this encounter Functional Status * Calculated C-SSRS Risk Score (Lifetime/Recent) Answer Date of Assessment Author No Risk Indicated 11/12/2024 11:57 AM EDT Megan Hernandez RN * [place] Suicide Severity Rating Scale (Screener/Recent Self-Report) Question Answer Date of Assessment Author 1. Wish to be (Past 1 Month) No 025 11:57 AM EDT Megan Hernandez, RN 2. Non-Specific Active Suici taina Thoughts (Past 1 Month) No 11/12/2024 11:57 AM EDT Megan Hernandez, RN 6. Suicidal Behavior (Lifetime) No 11:57 AM EDT Megan Hernandez, RN documented as of this encounter Plan of Treatment Upcoming Encounters Date Type Department Care Team (Late st Contact Info) Description 01/14/2025 7:30 AM EDT Office Visit [facility] [address] [facility] [address] [place] [address] Elissa Rick, SUPPLY CHAIN INTERN [address] [facility] [address] [place] [address] documented as of this encounter Visit Diagnoses Not on filedocumented in this encounter Care Teams Automation Engineer Relationship Specialty Start Date End Date Maximo Cash MD [address] [facility] [address] [facility] [address] [place] [address] PCP - General Internal Medicine 09/16/18 documented as of this encounter
--- OUTSIDE RECORDS SUMMARY | 2025-01-02 10:37 | XMS_ITS | Clinical Summary ---
Author Organization Healthcare Address [facility] [place] [address] Care Team Providers Care Central Office Operator Name Role Phone Maximo Cash MD Primary Care Provider [phone] Family History Medical History Relation Name Comments Cardiac disorder Father Diabetes Mother Hypothyroidism Mother Relation Name Status Comments Father Mother Social History Tobacco Use Types Packs/Day Years Used Date Smoking Tobacco: Never Alcohol Use Standard Drinks/Week Comments No 0 (1 standard drink = 0.6 oz pur e alcohol) Comments Unknown Sex and Gender Information Value Date Recorded Sex Assigned at Not on file Legal Sex Female 8:11 PM EDT Gender Identity Not on file Sexual Orientation Not on file Last Filed Vital Signs Vital Sign Reading Time Taken Comments Blood Pressure 143/68 12/04/2021 6:40 PM EDT Pulse 62 12/04/2021 6:40 PM EDT Temperature 36.9 C (98.4 F) 12/04/2021 6:40 PM EDT Respiratory Rate 17 12/04/2021 6:40 PM EDT Oxygen Saturation 96% 12/04/2021 6:40 PM EDT RA Inhaled Oxygen Concentration - - Weight 66.6 kg (146 lb 13.2 oz) 12/04/2021 6:55 PM EDT Height 172.7 cm (5' 8 ) 07/02/2013 9:19 AM EST Body Mass Index 22.32 07/02/2013 9:19 AM EST Plan of Treatment Not on file Care Teams Central Office Operator Relationship Specialty Start Date End Date Maximo Cash MD [address] [facility] [address] [place] [address] PCP - General 09/10/20
--- OUTSIDE RECORDS SUMMARY | 2025-01-02 10:37 | XMS_ITS | Encounter Summary ---
[facility] [address] [place] [address] Care Team Providers Care Care Clinician Name Role Phone Maximo Cash MD Primary Care Provider [phone] Reason for Visit * Reason Onset Date Comments DR CONNER: PATIENT CALL x 2 re APPT, PAIN POST ER VISIT 11/13/2024 Encounter Details Date Type Department Care Team (Late st Contact Info) Description 11/13/2024 Telephone [facility] PAIN MANAGEMENT [address] [address] Juan Conner MD [address] [facility] [address] [place] [address] DR CONNER: PATIENT CALL x 2 re APPT, PAIN POST ER VISIT Social History Tobacco Use Types Packs/Day Years [...] encounter Miscellaneous Notes * Telephone Encounter - Luís Kim MA - 11/14/2024 10:41 AM EDT Spoke with pt. Patient is in extreme pain that is in lower back, right hip and down into right leg.Patient would like another ELISEO as soon as possible to help with the pain. MRI completed on 11/12 at [facility]. Informed pt since haven't been seen in a while, we would need to see her merritt appointment to better access her pain and condition. Patient verbalized understanding. Appt scheduled for 11/19 at [place] with Elissa. * Telephone Encounter - Joan Coon - 11/13/2024 11:04 AM EDT HUB AGENT ATTEMPTED CLINICAL WARM TRANSFER - NO ANSWER PLEASE SEE TEL ENC FROM 11/11 & ER VISIT YESTERDAY 11/12 PLEASE CALL PATIENT TO DISCUSS, ADVISE IF PATIENT CAN BE SCHEDULED ANY SOONER THAN 1st AVAILABLE 11/25 w/DR CONNER? THANKS documented in this encounter Plan of Treatment Upcoming Encounters Date Type Department Care Team (Late st Contact Info) Description 01/14/2025 7:30 AM EDT Office Visit [facility] PAIN MANAGEMENT [address] [facility] [address] [place] [address] Elissa Rick, EXCELSIOR CUTTER [address] [place] [address] documented as of this encounter Visit Diagnoses Not on filedocumented in this encounter Care Teams Care Clinician Relationship Specialty Start Date End Date Maximo Cash MD [address] [place] [address] [place] [address] PCP - General Internal Medicine 09/16/18 documented as of this encounter
--- OUTSIDE RECORDS SUMMARY | 2025-01-02 10:37 | XMS_ITS | Encounter Summary ---
[facility] [address] [place] [address] Care Team Providers Care Truck Loader Overhead Crane Name Role Phone Maximo Cash MD Primary Care Provider [phone] Encounter Details Date Type Department Care Team (Latest Contact Info) Description 11/19/2024 Travel Social History Tobacco Use Types Packs/Day [...] Description 01/14/2025 7:30 AM EDT Office Visit [facility] PAIN [facility]NA[facility]EMENT [address] [facility] [address] [place] [phone] Elissa Rick, RECYCLING COORDINATOR [address] [facility] [address] [place] [address] documented as of this encounter Visit Diagnoses Not on filedocumented in this encounter Care Teams Truck Loader Overhead Crane Relationship Specialty Start Date End Date Maximo Cash MD [address] [facility] [address] [place] [address] PCP - General Internal Medicine 09/16/18 documented as of this encounter
--- OUTSIDE RECORDS SUMMARY | 2025-01-02 10:38 | XMS_ITS | Encounter Summary ---
Author Organization [facility] Address [address] [place] [id number] Care Team Providers Care Tray Drier Name Role Phone Maximo Cash MD Primary Care Provider [phone] Encounter Details Date Type Department Care Team (Late st Contact Info) Description 11/19/2024 Documentation [facility] PAIN MANAGEMENT [address] [address] Juan Linares MD [address] [place] [address] Social History Tobacco Use Types Packs/Day Years [...] as of this encounter Progress Notes * Juan Linares MD - 11/19/2024 10:33 AM EDT PROCEDURE DATE: 11/19/2024 PREOPERATIVE DIAGNOSES: 1. Lumbar stenosis with neurogenic claudication 2. Degeneration of intervertebral disc of lumbar region 3. Scoliosis of thoracolumbar spine, unspecified scoliosis type 4. Spondylosis of lumbar region without myelopathy or radiculopathy 5. Myofascial pain 6. Generalized anxiety disorder POSTOPERATIVE DIAGNOSES: 1. Lumbar stenosis with neurogenic claudication 2. Degeneration of intervertebral disc of lumbar region 3. Scoliosis of thoracolumbar spine, unspecified scoliosis type 4. Spondylosis of lumbar region without myelopathy or radiculopathy 5. Myofascial pain 6. Generalized anxiety disorder PROCEDURES PERFORMED: Diagnostic and therapeutic right L3-L4 transforaminal epidural steroid injection Diagnostic and therapeutic right L4-L5 transforaminal steroid injection injection ANESTHESIA: Local anesthesia plus IV sedation COMPLICATIONS: None EBL: 0 MEDICAL NECESSITY: A comprehensive evaluation, including history and physical exam and pertinent physiological and functional assessment, was performed. The patient presents with intractable pain dueto the diagnoses listed above. The patient has failed to respond to conservative modalities, as referenced under HPI including the impact of patient's [id number] pain contributing to significant impairment in daily activities, ADLs, and a negative impact on quality of life. Supporting diagnostic studies of patient's chronic pain condition have been reviewed. We have discussed using a stepwise approach starting with the shortest or least intense level of treatment, care, or service as determined by the extent required to diagnose and or treat a patient's condition. The treatments proposed are consistent with the patient's medical condition and are known to be as safe and effective bycurrent guidelines and standard of care. See OV note. PROCEDURE SUMMARY: After explaining all the risks and benefits of the procedure, an informed consent was obtained. The patient's surgical site was confirmed with the patient and marked in the holding room accordingly. The patient was transferred to the procedure room and placed on the operating room table in the prone position. Time out was completed. Non-invasive monitors were applied. The patient declined administration of IV sedation by a designated procedure room nurse, who monitored the patient's level of consciousness and physiological status. Pertinent information was reported on a sedation flow sheet, which is part of the patient's permanent medical records. Start procedure time: 11:32 PM. The patient's vital signs remained within normal limits. The lumbar spine area was prepped and draped in a sterile fashion. Using C-arm fluo roscopic guidance, the 6 o'clock area of the right L3 and right L4 pedicles (targets) were identified. The skin and tissues overlying the target were anesthetized with 5 ml of 1% lidocaine. A 22-gauge styletted needle was advanced into the most posterior and superior portion of the right L3-L4 and right L4-L5 neural foramina without any difficulties. The patient did not experience paresthesia. APand lateral X-ray views were obtained confirming appropriate needle placement. Aspiration was negative for blood and/or CSF. One ml of Omnipaque-240 was injected and contrast dye was seen bathing theright L3 and right L4 nerve roots with spread into the epidural space. X-rays were obtained and scanned in the patient's chart. Two ml of a mixture of 0.25% bupivacaine with 4 mg of dexamethasone were injected. X-rays were obtained and scanned in the patient's chart. Fluoroscopy was utilized using low-dose of radiation applying collimation, pulsed mode, and shielding following ALARA recommendation s. Fluoroscopy time: 12 seconds. End procedure time: 11:35 PM . The patient tolerated the procedurewell and without incident. Upon completion of the procedure, the patient was transferred to the recovery room in stable condition. The patient was discharged from the [facility] neurologically intact and with appropriate discharge instructions. Pain level before procedure: 12 /10. Pain level after procedure: 0/10. PLAN: Follow up with Elissa Rick APRN in 10 weeks. We may repeat therapeutic right L3-L4 and right L4-L5 transforaminal steroid injections depending on the patient's outcome. The patient has been instructed to contact my office with any questions or difficulties. The patient understands the plan and agrees to proceed accordingly. Please note that portions of this note were completed with a voice recognition program. Signatures Electronically signed by: Juan Linares M.D.; NOVEMBER 19, 2024, 13:42 EST (Author) documented in this encounter Plan of Treatment Upcoming Encounters Date Type Department Care Team (Late st Contact Info) Description 01/14/2025 7:30 AM EDT Office Visit [facility] PAIN MANAGEMENT [address] [facility] [address] [place] [address] Elissa Rick, INDUSTRIAL ENGINEER [address] [facility] [address] [place], [place] [id number] documented as of this encounter Visit Diagnoses Not on filedocumented in this encounter Care Teams Tray Drier Relationship Specialty Start Date End Date Maximo Cash MD [address] [facility] [address] [place] [address] PCP - General Internal Medicine 09/16/18 documented as of this encounter
== END 2025-01-01 23:59 ==
LOC: LAB.DROPOF 01-02 10:35
PROVIDERS: PCP Internal Medicine; Visit Provider Internal Medicine
DX: E53.8 Deficiency of other specified B group vitamins (principal); E78.5 Hyperlipidemia, unspecified; M15.0 Primary generalized (osteo)arthritis; F32.A Depression, unspecified; I87.2 Venous insufficiency (chronic) (peripheral); E87.1 Hypo-osmolality and hyponatremia; E03.9 Hypothyroidism, unspecified
CPT/HCPCS: 80053; 80061; 84443; 85025

== ENCOUNTER 2025-04-06 09:36 | Outpatient (CLI) | payer MEDICARE, SELFPAY ==
[2025-04-06 14:29] LABS: Hematocrit 44.6 % (37.0-47.0); Hemoglobin 14.4 g/dL (12.2-16.2); Immature Granulocytes % 0.3 %; Mean Corpuscular HGB Conc 32.3 g/dL (31.8-35.4); Mean Corpuscular Hemoglobin 28.4 pg (27.0-31.2); Mean Corpuscular Volume 88.0 fl (81-99); Nucleated Red Blood Cells % 0 %; Platelet Count 448 K/mm3 (142-424); Red Blood Count 5.07 M/mm3 (4.20-5.40); Red Cell Distribution Width-SD 40.6 fL; White Blood Count 6.3 K/mm3 (4.8-10.8)
[2025-04-06 14:49] LABS: Anion Gap 21.9 mEq/L (5-15); Blood Urea Nitrogen 11 mg/dl (7-17); Calcium 10.0 mg/dl (8.4-10.2); Carbon Dioxide 23 mmol/L (22.0-30.0); Chloride 100 mmol/L (98-107); Creatinine,Serum 0.60 mg/dl (0.52-1.04); Estimated Glomerular Filt Rate 98 ml/min (>60); GFR (African American) 118 ML/MIN (>60); Glucose 87 mg/dl (74-100); Potassium 4.9 mmoL/L (3.5-5.1); Sodium 140 mmol/L (136-145)
[2025-04-06 15:17] LABS: Thyroid Stimulating Hormone 0.90 uIU/mL (0.465-4.68)
[2025-04-12 19:12] LABS: 1,25 Dihydroxy Vitamin D 129 pg/mL (.); 1,25-Dihydroxy, Vitamin D-2 <10 pg/mL (.); 1,25-Dihydroxy, Vitamin D-3 129 pg/mL (.)
== END 2025-04-06 23:59 | disposition home or self-care (01) ==
LOC: LAB.DROPOF 04-08 09:41
PROVIDERS: PCP Internal Medicine; Visit Provider Internal Medicine
DX: E03.9 Hypothyroidism, unspecified (principal); M15.0 Primary generalized (osteo)arthritis; E53.8 Deficiency of other specified B group vitamins; E87.1 Hypo-osmolality and hyponatremia; I87.2 Venous insufficiency (chronic) (peripheral); Z78.0 Asymptomatic menopausal state
CPT/HCPCS: 80048; 82652; 84443; 85025